=== PATIENT | female | born 1975 | race Caucasian/White ===

== ENCOUNTER → 2020-03-18 13:10 | Outpatient (BNVA) | payer OTHER, SELFPAY | PROVIDERS: PCP Internal Medicine; Visit Provider Obstetrics & Gynecology | DX: Z76.89 Persons encountering health services in other specified circumstances (principal) ==

== ENCOUNTER 2020-10-13 10:00 | Outpatient (REF) | payer OTHER, SELFPAY ==
--- NOTE | ~2020-10-13 | MM_ITS ---
EXAMINATION: MM SCREENING DIGITAL BREAST TOMOSYNTHESIS, BILATERAL CLINICAL INFORMATION: Screening. Asymptomatic. The lifetime risk of breast cancer based on the Tyrer-Cuzick Model is 20%. COMPARISON: Mammography: 07/28/2019, 06/11/2018, 09/23/2015 TECHNIQUE: Digital breast tomosynthesis is performed in both the craniocaudal and mediolateral oblique views along with computer-aided detection (CAD). Synthesized 2D images are generated from the tomosynthesis. FINDINGS: The breasts are extremely dense, which lowers the sensitivity of mammography (ACR BI-RADS breast composition Category d). There are no significant masses, abnormal calcifications, or other abnormalities. Parenchymal pattern is similar to prior studies. The axilla and skin contours are unremarkable. MM/MM tomosynthesis screening BI IMPRESSION: No mammographic evidence of malignancy. ASSESSMENT: BI-RADS 1: Negative RECOMMENDATION: Routine annual mammography screening. This patient's information was entered into a reminder system with a target due date for their next mammogram.
== END 2020-10-13 10:01 | disposition home or self-care (01) ==
LOC: HO.MAMMO 10:00
PROVIDERS: Visit Provider Internal Medicine
DX: Z12.31 Encounter for screening mammogram for malignant neoplasm of breast (principal)
CPT/HCPCS: 77063; 77067

== ENCOUNTER 2020-10-28 11:51 | Outpatient (REF) | payer OTHER, SELFPAY ==
[2020-10-28 13:17] LABS: MANUAL DIFF FLAG NO
[2020-10-28 13:21] LABS: Basophils Absolute Auto 0.1 X10*3/uL (0.0-0.2); Basophils Percent Auto 1.1 % (0-2); Eosinophils Absolute Auto 0.5 X10*3/uL (0.0-0.4); Eosinophils Percent Auto 6.3 % (0-4); Hematocrit 40.7 % (37-47); Hemoglobin 13.6 g/dl (12.0-16.0); Imm Gran Abs Auto 0.01 X10*3/uL (0.00-0.03); Imm Gran Pct Auto 0.1 % (0.0-0.4); Lymphocytes Absolute Auto 2.2 X10*3/uL (1.2-4.9); Lymphocytes Percent Auto 31.1 % (20-40); Mean Corpuscular HGB Conc 33.4 g/dl (31.0-35.0); Mean Corpuscular Hemoglobin 28.5 pg (27.0-33.0); Mean Corpuscular Volume 85.3 fL (80-98); Mean Platelet Volume 9.6 fL (9.4-12.3); Monocytes Absolute Auto 0.5 X10*3/uL (0.1-1.2); Monocytes Percent Auto 7.5 % (2-11); Neutrophils Absolute Auto 3.9 X10*3/uL (2.0-8.3); Neutrophils Percent Auto 53.9 % (45-73); Platelet Count 401 X10*3/uL (160-400); Red Blood Count 4.77 X10*6/uL (4.20-5.50); Red Cell Distribution Width 14.1 % (11.0-16.0); White Blood Count 7.2 X10*3/uL (4.8-10.8)
[2020-10-28 13:37] LABS: Alanine Aminotransferase 13 U/L (0-31); Albumin Level 4.4 g/dL (3.5-5.0); Alkaline Phosphatase 68 U/L (39-117); Anion Gap 15 (12-20); Aspartate Amino Transferase 14 U/L (5-31); Bilirubin Total 0.4 mg/dL (0.0-1.0); Blood Urea Nitrogen 14 mg/dL (9-16); Calcium 9.7 mg/dL (8.4-10.2); Carbon Dioxide 27 mmol/L (22-29); Chloride 101 mmol/L (96-108); Cholesterol 177 mg/dL; Estimated Glomerular Filt Rate > 60; Glucose Random 94 mg/dL (60-115); HDL Cholesterol 64 mg/dL; LDL Cholesterol Calculated 100 mg/dl; Potassium 4.9 mmol/L (3.3-5.1); Sodium 138 mmol/L (135-145); Total Protein 7.4 g/dL (6.5-8.0); Triglycerides 65 mg/dL
[2020-10-28 13:58] LABS: Free T4 (Free Thyroxine) 0.79 ng/dL (0.71-1.85); Thyroid Stimulating Hormone 2.81 uIU/mL (0.32-4.0)
[2020-10-29 04:42] LABS: Follicle Stimulating Hormone 5.2 mIU/mL; Lutenizing Hormone 3.3 mIU/mL; Prolactin 10.2 ng/mL
== END 2020-10-28 11:52 | disposition home or self-care (01) ==
LOC: HO.LAB 11:51
PROVIDERS: PCP Internal Medicine; Visit Provider Internal Medicine
DX: Z00.00 Encounter for general adult medical examination without abnormal findings (principal); N94.6 Dysmenorrhea, unspecified; E03.9 Hypothyroidism, unspecified
CPT/HCPCS: 36415; 80053; 80061; 83001; 83002; 84146; 84439; 84443; 85025

== ENCOUNTER 2021-10-14 10:03 | Outpatient (REF) | payer OTHER, SELFPAY ==
--- NOTE | ~2021-10-14 | MM_ITS ---
EXAMINATION: MM SCREENING DIGITAL BREAST TOMOSYNTHESIS, BILATERAL CLINICAL INFORMATION: Screening. Asymptomatic. The lifetime risk of breast cancer based on the Tyrer-Cuzick Model is 17%. COMPARISON: Mammography: 10/13/2020, 07/28/2019, 06/11/2018 TECHNIQUE: Digital breast tomosynthesis is performed in both the craniocaudal and mediolateral oblique views along with computer-aided detection (CAD). Synthesized 2D images are generated from the tomosynthesis. FINDINGS: The breasts are extremely dense, which lowers the sensitivity of mammography (ACR BI-RADS breast composition Category d). Breast tissue composition borders on heterogeneously dense. Parenchymal pattern is similar to prior studies. There is no developing density. There is no interval mass or architectural abnormality. No abnormal calcifications. The axilla and skin contours are unremarkable. No significant changes. MM/MM tomosynthesis screening BI IMPRESSION: No mammographic evidence of malignancy. ASSESSMENT: BI-RADS 1: Negative RECOMMENDATION: Routine annual mammography screening. This patient's information was entered into a reminder system with a target due date for their next mammogram.
== END 2021-10-14 10:04 | disposition home or self-care (01) ==
LOC: HO.MAMMO 10:03
PROVIDERS: PCP Internal Medicine; Visit Provider Internal Medicine
DX: Z12.31 Encounter for screening mammogram for malignant neoplasm of breast (principal)
CPT/HCPCS: 77063; 77067

== ENCOUNTER 2021-10-24 09:14 | Outpatient (REF) | payer OTHER, SELFPAY ==
[2021-10-24 16:20] LABS: CT PCR NOT DETECTED (Not Detect.); NG PCR NOT DETECTED (Not Detect.)
[2021-10-27 05:26] LABS: HPV mRNA E6/E7 rflx Not Detected (Not Detected)
== END 2021-10-24 09:15 | disposition home or self-care (01) ==
LOC: HO.LAB 09:14
PROVIDERS: Visit Provider Obstetrics & Gynecology
DX: Z01.411 Encounter for gynecological examination (general) (routine) with abnormal findings (principal); Z11.51 Encounter for screening for human papillomavirus (HPV); N93.9 Abnormal uterine and vaginal bleeding, unspecified
CPT/HCPCS: 87491; 87591; 87624; 88142

== ENCOUNTER 2021-11-02 10:03 | Outpatient (REF) | payer OTHER, SELFPAY | END 2021-11-02 10:04 | disposition home or self-care (01) | LOC: HO.LAB 10:03 | PROVIDERS: Visit Provider Obstetrics & Gynecology | DX: N93.9 Abnormal uterine and vaginal bleeding, unspecified (principal) | CPT/HCPCS: 58100; 81025; 88305 ==

== ENCOUNTER 2021-11-28 12:58 | Outpatient (REF) | payer OTHER, SELFPAY ==
--- NOTE | ~2021-11-28 | US_ITS ---
EXAMINATION: US PELVIS CLINICAL INFORMATION: Abnormal uterine bleeding COMPARISON: Previous pelvic ultrasound February 2020 TECHNIQUE: Ultrasound of the pelvis is performed using both transabdominal and transvaginal transducers along with Doppler. Transvaginal imaging is performed due to inadequate visualization transabdominally. FINDINGS: The uterus is anteverted and measures 8.8 x 4.5 x 4.5 cm. There is a heterogeneous area in the anterior lower uterine body suggestive of a fibroid. This measures 1.4 x 1.3 x 1.5 cm. No other focal uterine lesion is seen. Endometrial thickness is normal measuring 0.8 cm. The right ovary measures 2.4 x 1.9 x 1.6 cm. There is a 1.6 cm simple right ovarian cyst. The left ovary is not seen. There is no fluid in the pelvis. US/US pelvic and transvaginal IMPRESSION: Small uterine fibroid. Normal-appearing right ovary. Left ovary not seen.
== END 2021-11-28 12:59 | disposition home or self-care (01) ==
LOC: HO.US 12:58
PROVIDERS: Visit Provider Obstetrics & Gynecology
DX: N93.9 Abnormal uterine and vaginal bleeding, unspecified (principal)
CPT/HCPCS: 76830; 76856

== ENCOUNTER 2021-12-08 08:49 | Outpatient (REF) | payer OTHER, SELFPAY ==
[2021-12-08 09:31] LABS: Hematocrit 39.7 % (37.0-47.0); Hemoglobin 13.2 g/dl (12.0-16.0); Mean Corpuscular HGB Conc 33.2 g/dl (31.0-35.0); Mean Corpuscular Hemoglobin 27.8 pg (27.0-33.0); Mean Corpuscular Volume 83.6 fL (80.0-98.0); Mean Platelet Volume 8.8 fL (9.4-12.3); Platelet Count 351 X10*3/uL (160-400); Red Blood Count 4.75 X10*6/uL (4.20-5.50); Red Cell Distribution Width 13.5 % (11.0-16.0); White Blood Count 7.9 X10*3/uL (4.8-10.8)
[2021-12-08 10:21] LABS: HCG Quantitative < 2 mIU/mL; TSH reflex Free T4 5.99 uIU/mL (0.32-4.0)
[2021-12-08 10:56] LABS: Free T4 (Free Thyroxine) 0.84 ng/dL (0.71-1.85)
== END 2021-12-08 08:50 | disposition home or self-care (01) ==
LOC: HO.LAB 08:49
PROVIDERS: PCP Internal Medicine; Visit Provider Obstetrics & Gynecology
DX: N93.9 Abnormal uterine and vaginal bleeding, unspecified (principal)
CPT/HCPCS: 36415; 84439; 84443; 84702; 85027

== ENCOUNTER 2022-10-20 09:53 | Outpatient (REF) | payer OTHER, SELFPAY ==
--- NOTE | ~2022-10-20 | MM_ITS ---
EXAMINATION: MM SCREENING DIGITAL BREAST TOMOSYNTHESIS, BILATERAL CLINICAL INFORMATION: Screening. Asymptomatic. The lifetime risk of breast cancer based on the Tyrer-Cuzick Model is 17%. COMPARISON: Mammography: 10/14/2021, 10/13/2020, 07/28/2019 TECHNIQUE: Digital breast tomosynthesis is performed in both the craniocaudal and mediolateral oblique views along with computer-aided detection (CAD). Synthesized 2D images are generated from the tomosynthesis. FINDINGS: The breasts are extremely dense, which lowers the sensitivity of mammography (ACR BI-RADS breast composition Category d). Parenchymal pattern is similar to prior studies and there is no developing density or architectural abnormality. There are no significant masses, abnormal calcifications, or other abnormalities. The axilla and skin contours are unremarkable. No significant changes. MM/MM tomosynthesis screening BI IMPRESSION: No mammographic evidence of malignancy. ASSESSMENT: BI-RADS 1: Negative RECOMMENDATION: Routine annual mammography screening. This patient's information was entered into a reminder system with a target due date for their next mammogram.
== END 2022-10-20 09:54 | disposition home or self-care (01) ==
LOC: HO.MAMMO 09:53
PROVIDERS: PCP Internal Medicine; Visit Provider Internal Medicine
DX: Z12.31 Encounter for screening mammogram for malignant neoplasm of breast (principal)
CPT/HCPCS: 77063; 77067

== ENCOUNTER 2022-11-27 09:49 | Outpatient (REF) | payer OTHER, SELFPAY | END 2022-11-27 09:50 | disposition home or self-care (01) | LOC: HO.LNP 09:49 | PROVIDERS: PCP Internal Medicine; Visit Provider Obstetrics & Gynecology | DX: Z13.89 Encounter for screening for other disorder (principal) ==

== ENCOUNTER 2022-11-27 10:28 | Outpatient (REF) | payer OTHER, SELFPAY ==
[2022-11-27 11:48] LABS: Hematocrit 41.2 % (37.0-47.0); Hemoglobin 13.8 g/dl (12.0-16.0); Mean Corpuscular HGB Conc 33.5 g/dl (31.0-35.0); Mean Corpuscular Hemoglobin 28.9 pg (27.0-33.0); Mean Corpuscular Volume 86.4 fL (80.0-98.0); Mean Platelet Volume 9.3 fL (9.4-12.3); Platelet Count 388 X10*3/uL (160-400); Red Blood Count 4.77 X10*6/uL (4.20-5.50); Red Cell Distribution Width 13.2 % (11.0-16.0); White Blood Count 6.4 X10*3/uL (4.8-10.8)
[2022-11-27 13:29] LABS: TSH reflex Free T4 4.85 uIU/mL (0.32-4.0)
[2022-11-27 13:30] LABS: HCG Quantitative < 2 mIU/mL
[2022-11-27 13:37] LABS: CT PCR NOT DETECTED (Not Detect.); NG PCR NOT DETECTED (Not Detect.)
[2022-11-27 14:16] LABS: Free T4 (Free Thyroxine) 0.94 ng/dL (0.71-1.85)
== END 2022-11-27 10:29 | disposition home or self-care (01) ==
LOC: HO.LAB 10:28
PROVIDERS: PCP Internal Medicine; Visit Provider Obstetrics & Gynecology
DX: N93.9 Abnormal uterine and vaginal bleeding, unspecified (principal); Z20.2 Contact with and (suspected) exposure to infections with a predominantly sexual mode of transmission
CPT/HCPCS: 0353U; 84146; 84439; 84443; 84702; 85027

== ENCOUNTER 2022-12-15 11:03 | Outpatient (REF) | payer OTHER, SELFPAY ==
--- NOTE | ~2022-12-15 | US_ITS ---
EXAMINATION: US PELVIS CLINICAL INFORMATION: Abnormal uterine and vaginal bleeding, unspecified LMP: Unknown COMPARISON: Pelvic ultrasound 11/28/2021, 02/03/2020 TECHNIQUE: Ultrasound of the pelvis is performed using both transabdominal and transvaginal transducers along with Doppler. Transvaginal imaging is performed due to inadequate visualization transabdominally. FINDINGS: Uterus: The uterus is anteverted and measures 8.4 x 3.9 x 4.0 cm. section scar is noted. 0.9 x 0.7 x 1.0 cm anterior subserosal fibroid previously measured 1.4 x 1.3 x 1.5 cm. 0.9 x 0.9 x 0.8 cm posterior fibroid is new. Calcifications are seen in the lower uterine segment The endometrial thickness is 0.9-1.0 mm. Adnexa: Right ovary measures 2.4 x 1.9 x 2.0 cm. Volume 4.5 mL. This is better seen transabdominally. The left ovary is questionably seen. There are limited views of the left ovary due to bowel gas. Left ovary measures 2.3 x 1.0 x 1.2 cm. 1.5 US/US pelvic and transvaginal IMPRESSION: 1. Interval decrease in size of 1.0 cm anterior subserosal fibroid. 2. New 0.9 cm posterior fibroid. 3. Normal right ovary. 4. Limited views of the left ovary due to bowel gas.
== END 2022-12-15 11:04 | disposition home or self-care (01) ==
LOC: HO.US 11:03
PROVIDERS: PCP Internal Medicine; Visit Provider Obstetrics & Gynecology
DX: N93.9 Abnormal uterine and vaginal bleeding, unspecified (principal)
CPT/HCPCS: 76830; 76856

== ENCOUNTER 2023-01-03 14:23 | Outpatient (AMB) | payer OTHER, SELFPAY ==
--- NOTE | 2023-01-03 14:24 | MHC.OFFVIS ---
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 Sexual orientation: Straight/Heterosexual Gender identity: Female Female Reproductive History Menstrual Age of Menarche: 10 Review of Systems Const All systems reviewed & are unremarkable except as noted in HPI and below Reports as per HPI and Reports no additional complaints GI Reports no additional complaints Reports no additional complaints Physical Exam Vital Signs: Last Vital Signs BP 120/74 01/03/23 14:31 BMI result Body Mass Index 26.9 Office Procedures Endometrial Biopsy Details: The patient was counseled regarding the indication and benefits of endometrial sampling to rule out endometrial pathology including not limited to endometrial hyperplasia or endometrial cancer and others; The alternatives (Either do nothing vs. hysteroscopy D&C) & the risks were discussed with the patient including but not limited: pain, uterine perforation, bleeding, infection, possible injury to bladder, bowel, ureter, possible need for blood transfusion with all its possible risks. The patient verbalized understanding all questions answered and signed consent. Urine test done in the office was negative The patient was placed into the dorsal lithotomy position; a speculum was inserted in the vagina. Using aseptic technique for the procedure, the cervix was cleansed with Betadine. The anterior lip of the cervix was grasped with a single tooth tenaculum. The uterus was sounded to 7 cm with a 4 mm Pipelle was used. Tissues samples were obtained and placed in formalin, in a patient labeled container and sent to the pathology department. At the end of the procedure, there was minimal bleeding noted The patient tolerated the procedure well and was discharged in good condition with the following instructions: Nothing in the vagina until the bleeding stops. No sex until the bleeding stops, to call if any of the following occurs: fever (>100.4), flu-like symptoms, abdominal pain, heavy bleeding, four smelling vaginal discharge. The patient was instructed to schedule a Follow up appointment in 2 weeks to discuss pathology results of the biopsy and treatment options. This note was generated with a voice recognition program. Some errors may have been overlooked during the review of this note. Sometimes these errors may affect the content or meaning of a given sentence. [id number] Biopsy Results AMB Test Urine AMB Test Urine Negative Last Edit by Cherri Hernandez CMA on 01/03/23 14:39 Assessment & Plan Assessment & Plan (1) Abnormal uterine bleeding (AUB): Code(s): N93.9 - Abnormal uterine and vaginal bleeding, unspecified (2) Myoma: Code(s): D21.9 - Benign neoplasm of connective and other soft tissue, unspecified (3) Elevated TSH: Code(s): R79.89 - Other specified abnormal findings of blood chemistry Orders: Orders AMB HCG Urine Test Today Z32.02 - Encounter for test, result negative Surgical Today N93.9 - Abnormal uterine and vaginal bleeding, unspecified AMB Endometrial Biopsy Today N93.9 - Abnormal uterine and vaginal bleeding, unspecified Coding Level of Care Code Procedure Only Diagnoses Abnormal uterine bleeding (AUB) N93.9 Myoma D21.9 Elevated TSH R79.89 CPT Codes Endometrial Biopsy - CPT: 30386-Jmpxlcueewe Biopsy ([id number])
[2023-01-03 14:31] VITALS: BP 120/74; BMI 26.9
== END 2023-01-03 15:11 | disposition home or self-care (01) ==
LOC: HO.HWS 14:23
PROVIDERS: PCP Internal Medicine; Visit Provider Obstetrics & Gynecology
DX: N93.9 Abnormal uterine and vaginal bleeding, unspecified (principal); D21.9 Benign neoplasm of connective and other soft tissue, unspecified; R79.89 Other specified abnormal findings of blood chemistry; Z32.02 Encounter for pregnancy test, result negative
CPT/HCPCS: 58100

== ENCOUNTER 2023-01-03 14:23 | Outpatient (REF) | payer OTHER, SELFPAY | END 2023-01-03 14:24 | disposition home or self-care (01) | LOC: HO.LNP 14:23 | PROVIDERS: PCP Internal Medicine; Visit Provider Obstetrics & Gynecology | DX: N93.9 Abnormal uterine and vaginal bleeding, unspecified (principal); D21.9 Benign neoplasm of connective and other soft tissue, unspecified; R79.89 Other specified abnormal findings of blood chemistry | CPT/HCPCS: 58100; 81025; 88305 ==

== ENCOUNTER 2023-01-23 10:17 | Outpatient (AMB) | payer OTHER, SELFPAY ==
--- NOTE | 2023-01-23 10:17 | MHC.OFFVIS ---
Intake Intake Visit Reasons: TV EMB results Elevator Technician Required: No Information Interpreted: non-clinical & clinical Accompanied by: Self / Same As Patient Allergies No Known Allergies [No Known Allergies*] Allergy (Verified 01/23/23 10:18) HPI HPI Comments History of Present Illness Details The patient schedule tele health visit for follow-up to discuss the results of her abnormal uterine bleeding workup and options of treatment. The following workup was done.: H&H= 13.8/41.2 hCG, GC and chlamydia were negative. TSH is elevated at 4.85 with normal free T4 Endometrial biopsy pathology showed proliferative endometrium with no evidence of hyperplasia and/or malignancy. Co testing was done in 10/23 was negative. Mammogram was done in 10/24 was BI-RADS 1. Pelvic ultrasound showed the following: IMPRESSION: 1. Interval decrease in size of 1.0 cm anterior subserosal fibroid. 2. New 0.9 cm posterior fibroid. 3. Normal right ovary. 4. Limited views of the left ovary due to bowel gas. [facility] Medical History Asthma Cervical high risk HPV (human papillomavirus) test positive Surgical History History of bilateral tubal ligation History of Family History Father HTN (hypertension) Mother No problems noted. 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 Sexual orientation: Straight/Heterosexual Gender identity: Female Female Reproductive History Menstrual Age of Menarche: 10 Review of Systems Const All systems reviewed & are unremarkable except as noted in HPI and below Reports as per HPI and Reports no additional complaints GI Reports no additional complaints Reports no additional complaints Assessment & Plan Assessment & Plan (1) Abnormal uterine bleeding (AUB): Code(s): N93.9 - Abnormal uterine and vaginal bleeding, unspecified Plan: Discussed with the patient the results of the work up done and options of treatment including but not limited to BCP's, cyclic Progesterone, Mirena IUD, endometrial ablation and hysterectomy. All pros, cons, risks and benefits of each option were discussed with the patient and the patient decided to go ahead with cyclic Provera, so a more detailed discussion re: Progesterone treatment including mechanism of action, benefits (regular menses, endometrial protection form unopposed estrogen and reduction in the risk of endometrial hyperplasia and/or cancer ...), risks (Thrombosis, mood changes, weight gain, breast soreness, ? increased breast ca, others). Instructions were given to schedule a 3 month follow-up appointment, the patient verbalized understanding and agreed with the plan. (2) Myoma: Code(s): D21.9 - Benign neoplasm of connective and other soft tissue, unspecified Plan: Discussed with the patient the findings on pelvic ultrasound & the risk of myosarcoma; discussed with the patient the options of treatment including expectant management versus hysterectomy; the pros and cons, risks benefits of each approach were discussed with the patient including the fact that in cases of myosarcoma, surgical treatment can lead to early diagnosis and positively affects the prognosis; after further discussion, the patient decided to proceed with expectant management. Will repeat pelvic ultrasound periodically. Instructions given to patient to call in case any of the following occurs: pressure symptoms, abnormal uterine bleeding, pelvic pain; and to schedule a future office follow-up appointment for reassessment and to order a repeat ultrasound . All questions answered, the patient verbalized understanding and agreed with the plan . (3) Elevated TSH: Code(s): R79.89 - Other specified abnormal findings of blood chemistry Plan: Discussed with the patient the results of her elevated TSH and free T4, recommend the patient to contact her primary care physician for further management I spent a total of 20 minutes reviewing the chart, talking to the patient via video and documenting in the medical record. Medications: New medroxyprogesterone (Provera) start Provera 1 tablet daily from day 15-24 cyclically every months, day 1 being 1st day of menses 10 mg PO DAILY 30 tabs 0RF 10 days Telehealth Telehealth Location of provider rendering services: practice address Location of patient: address on file Patient Identification confirmed using: Name, : Yes Telehealth method: video Patient verbally consented to treatment: Yes Patient verbally consented to billing insurance company: Yes Patient informed of any privacy concerns related to visit: Yes Coding Level of Care Code Tele Est Pt Level 3 (14734) Diagnoses Abnormal uterine bleeding (AUB) N93.9 Myoma D21.9 Elevated TSH R79.89
== END 2023-01-23 14:55 | disposition home or self-care (01) ==
LOC: HO.HWS 10:17
PROVIDERS: PCP Internal Medicine; Visit Provider Obstetrics & Gynecology
DX: N93.9 Abnormal uterine and vaginal bleeding, unspecified (principal); D21.9 Benign neoplasm of connective and other soft tissue, unspecified; R79.89 Other specified abnormal findings of blood chemistry
CPT/HCPCS: 99213

== ENCOUNTER → 2023-01-23 10:17 | Outpatient (BNVA) | payer OTHER, SELFPAY | PROVIDERS: PCP Internal Medicine; Visit Provider Obstetrics & Gynecology ==

== ENCOUNTER 2023-02-15 12:13 | Outpatient (AMB) | payer OTHER, SELFPAY ==
--- NOTE | 2023-02-15 12:32 | A.OFFVIS_ITS ---
Intake Vital Signs 3 02/15/23 12:33 Height 5 ft 7 in Weight 169 lb BMI 26.5 BP 122/72 Blood Pressure Location Lt brachial Position Sitting Pulse 92 Intake Visit Reasons: Colonoscopy Screening Intake Note: Patient new consult for 1st pre colonoscopy screening. Patient denies any GI issues. Cost And Risk Analysis Manager Required: No Accompanied by: Self / Same As Patient Allergies No Known Allergies [No Known Allergies*] Allergy (Verified 02/15/23 12:31) HPI Colonoscopy Screening 2 HPI0 Details 47-year-old female here for preprocedura l meeting to discuss a screening colonoscopy. She is referred by Sharif Monique MD. PMX (PCP took note is illegible so there are parts of the medical history on discernible) Asthma Hypothyroid Menometrorrhagia * SURGICAL HISTORY Tubal ligation * ALLERGIES: NKDA * [facility]: 11/27/22-1032 [facility] DR: Caitlin simmons,James MOTA ORDERED: CBC No Diff Test Result Flag Refere nce Si te WBC 6.4 4.8-10. 8 X10*3/uL RBC 4.77 4.20-5.50 X10*6/uL H GB 13 .8 12.0-16.0 g /dl HCT 41.2 37.0-47.0 % MCV 86.4 80.0-98.0 fL MCH 28.9 27.0-33.0 pg MCHC 33.5 3 1.0-35.0 g/dl RDW 13.2 11. 0-16.0 % PLT 388 160-4 00 X10*3/uL MPV 9.3 L 9.4-12. 3 fL NRBC Pct Auto 0.0 0.0-0.2 / 100WBC N RBC Abs Auto 0.0 00 0.0-0.012 X 10*3/uL NO CURRENT CHEM PROFILE !!! TODAY'S VISIT This is her first colonoscopy. She denies any bowel or upper GI problems No anes or sed problems. Her asthma is well controlled and she denies cardiac problems. No ID problems. HEr father had colon polyps removed, no known CRC. PFSH Medical History Asthma Cervical high risk HPV (human papillomavirus) test positive Surgical History History of bilateral tubal ligation History of Family History Father HTN (hypertension) Mother No problems noted. 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 Sexual orientation: Straight/Heterosexual Gender identity: Female Female Reproductive History Menstrual Age of Menarche: 10 Review of Systems Const Denies fatigue, Denies fever(s), Denies night sweats, Denies poor appetite and Denies weight loss Eyes Details: glasses Reports requires corrective lenses ENT Reports Normal hearing present, Denies dental pain, Denies dysphagia, Denies hearing loss, Denies mouth pain, Denies odynophagia, Denies throat swelling, Denies tongue swelling and Reports other (Dentition adequate) Card Reports no additional complaints Resp Reports no additional complaints GI Denies abdominal pain, Denies melena, Denies bloating, Denies hematochezia, Denies constipation, Denies GI cramping, Denies dysphagia, Denies excessive flatus, Denies early satiety, Denies heartburn, Denies diarrhea, Denies nausea, Denies odynophagia, Denies vomiting and Denies hematemesis Skin/Breast Denies pruritus, Denies lesions, Denies rash and Denies jaundice Neuro Reports Normal hearing present and Denies Abnormal speech present Endo Denies fatigue Aller/Immun Denies throat swelling and Denies tongue swelling Physical Exam Vital Signs: Last Vital Signs Pulse 92 02/15/23 12:33 BP 122/72 02/15/23 12:33 BMI result Body Mass Index 26.5 Const General: cooperative, no acute distress, well developed and well groomed Nutritional Appearance: average body habitus and well nourished Orientation/consciousness: oriented to person, oriented to place and oriented to time Limitations: No language barrier HEENT Head: Yes normocephalic and Yes atraumatic Eyes General: appearance normal, both eyes and all related structures Pupils: Equal, round and reactive pupils present Neck Neck: Yes normal visual inspection and Yes no lymphadenopathy Thyroid: Thyroid normal Resp Effort & Inspection: normal respiratory effort and able to speak in complete sentences Auscultation: clear to auscultation bilaterally Cardio Rate: regular rate Rhythm: regular rhythm Heart sounds: Normal, physiologic split S2 sound present Peripheral pulses: radial pulses present and posterior tibial pulses present GI Inspection: No distended and No Abdominal panniculus present Palpation (GI): Soft to palpation, nontender, no guarding, not rigid and No hepatosplenomegaly present Percussion: Yes normal to percussion Auscultation: normal bowel sounds Rectal Exam - Female: deferred Abdomen image: 2 1. surgical scars Skin General skin exam: no rashes or lesions noted, turgor normal, skin not dry, no jaundice, No spider nevi and no striae Rashes: no rashes Nails: normal Neuro General: oriented to person, oriented to place and oriented to time Cranial nerves: Yes Equal, round and reactive pupils present and Yes Normal hearing present Speech: No Abnormal speech present Extrem General: Yes normal to inspection, No clubbing, No cyanosis and No edema Psych Appearance: grossly normal and well kempt Mental Status: mental status grossly normal Speech and movement: Normal speech and movement present Affect: normal affect Attitude: cooperative Thought process: Normal thought process present and not confabulating Thought content: Normal thought content present Insight: Good insight present (Psych) Judgement: Good judgement present (Psych) Assessment & Plan Assessment & Plan (1) Pre-op examination: Code(s): Z01.818 - Encounter for other preprocedural examination Plan: This is her first colonoscopy. She denies any bowel or upper GI problems No anes or sed problems. Her asthma is well controlled and she denies cardiac problems. No ID problems. HEr father had colon polyps removed, no known CRC. (2) Family history of polyps in the colon: Code(s): Z83.71 - Family history of colonic polyps Orders: Orders 2 Comprehensive Met. Panel 02/15/23 Z01.818 - Encounter for other preprocedural examination Medications: New 2 sod sulf-pot chloride-mag sulf 1.479-0.188- 0.225 gram (Sutab) PO PER PKG DIR 24 tabs 0RF Coding Level of Care Code New Pt Level 3 (20120) Diagnoses Pre-op examination Z01.818 Family history of polyps in the colon Z83.71
[2023-02-15 12:33] VITALS: BP 122/72; PULSE 92; BMI 26.5
== END 2023-02-15 13:22 | disposition home or self-care (01) ==
PROVIDERS: PCP Internal Medicine; Visit Provider Nurse Practitioner
DX: Z01.818 Encounter for other preprocedural examination (principal); Z83.71 Family history of colonic polyps
CPT/HCPCS: 99203

== ENCOUNTER → 2023-02-15 12:13 | Outpatient (BNVA) | payer OTHER, SELFPAY | PROVIDERS: PCP Internal Medicine; Visit Provider Nurse Practitioner ==

== ENCOUNTER 2023-06-18 | Outpatient (REF) | payer OTHER, SELFPAY ==
[2023-06-18 10:23] LABS: MANUAL DIFF FLAG NO
[2023-06-18 10:31] LABS: Basophils Absolute Auto 0.1 X10*3/uL (0.0-0.2); Basophils Percent Auto 1.4 % (0-2); Eosinophils Absolute Auto 0.8 X10*3/uL (0.0-0.4); Eosinophils Percent Auto 8.4 % (0-4); Hematocrit 42.3 % (37.0-47.0); Hemoglobin 14.1 g/dl (12.0-16.0); Imm Gran Abs Auto 0.02 X10*3/uL (0.00-0.03); Imm Gran Pct Auto 0.2 % (0.0-0.4); Lymphocytes Absolute Auto 2.6 X10*3/uL (1.2-4.9); Lymphocytes Percent Auto 28.4 % (20-40); Mean Corpuscular HGB Conc 33.3 g/dl (31.0-35.0); Mean Corpuscular Hemoglobin 28.1 pg (27.0-33.0); Mean Corpuscular Volume 84.4 fL (80.0-98.0); Mean Platelet Volume 8.9 fL (9.4-12.3); Monocytes Absolute Auto 0.9 X10*3/uL (0.1-1.2); Neutrophils Absolute Auto 4.8 x10*3/uL (2.0-8.3); Neutrophils Percent Auto 51.6 % (45-73); Platelet Count 419 X10*3/uL (160-400); Red Blood Count 5.01 X10*6/uL (4.20-5.50); Red Cell Distribution Width 13.5 % (11.0-16.0); White Blood Count 9.2 X10*3/uL (4.8-10.8)
[2023-06-18 10:58] LABS: Alanine Aminotransferase 14 U/L (0-31); Albumin Level 4.4 g/dL (3.5-5.0); Alkaline Phosphatase 70 U/L (39-117); Anion Gap 12 (12-20); Aspartate Amino Transferase 15 U/L (5-31); Bilirubin Total 0.3 mg/dL (0.0-1.0); Blood Urea Nitrogen 13 mg/dL (9-16); Calcium 9.8 mg/dL (8.4-10.2); Carbon Dioxide 25 mmol/L (22-29); Chloride 104 mmol/L (96-108); Cholesterol 192 mg/dL (<200); Estimated Glomerular Filt Rate > 60; Glucose Fasting 137 mg/dL (60-99); HDL Cholesterol 66 mg/dL (>40); LDL Cholesterol Calculated 116 mg/dL (<100); Potassium 4.5 mmol/L (3.3-5.1); Sodium 136 mmol/L (135-145); Total Protein 7.9 g/dL (6.5-8.0); Triglycerides 54 mg/dL (<150)
[2023-06-18 11:14] LABS: Free T4 (Free Thyroxine) 1.02 ng/dL (0.71-1.85); Thyroid Stimulating Hormone 5.68 uIU/mL (0.32-4.0)
[2023-06-19 07:18] LABS: Follicle Stimulating Hormone 3.2 mIU/mL; Lutenizing Hormone 4.6 mIU/mL
== END 2023-06-18 08:24 ==
LOC: HO.LAB
PROVIDERS: PCP Internal Medicine; Visit Provider Internal Medicine
DX: E03.9 Hypothyroidism, unspecified (principal)
CPT/HCPCS: 36415; 80053; 80061; 83001; 83002; 84439; 84443; 85025

== ENCOUNTER 2023-07-03 09:53 | Day surgery (SDC) | payer OTHER, SELFPAY ==
[2023-07-03] MEDS: Lactated Ringers 1,000 ML 80 ML IVCONT (11:14)
[2023-07-03 11:15] VITALS: BP 131/88; PULSE 88; RESP 18; TEMP 36.7; O2SAT 97
[2023-07-03 11:16] VITALS: BMI 26.0
--- NOTE | 2023-07-03 12:12 | P.HPSUR_ITS ---
Pre-Procedural Eval Section A - 24 Hr Update-Section A only Date of Service: 07/03/23 Section B - Complete if H&P > 30 days Chief Complaint: screening Relevant Family History (Specify if Yes): No Relevant Social History: None Present Medications: see Short Stay Collaborative assessment Medical History: Significant History (Asthma Hypothyroid Menometrorrhagia ) History of Previous Operations: Relevant previous surgery/procedure and date(s) (Tubal ligation ) Allergies: Allergies Allergy/AdvReac Type Severity Reaction Status Date / Time No Known Allergies Allergy Verified 02/15/23 12:31 [No Known Allergies*] Review of Systems Sugical H&P ROS: Negative: Constitution, Cardiovascular, Respiratory, Neurological, Psychiatric, Hem-Onc, Allergic/Immunologic, Gastrointestinal, Genitourinary, Musculoskeletal, Integumentary, Endocrine and Eye s/Ears/Nose/Throat Exam Surgical H&P Exam: Normal: HEENT, Normal: Heart, Normal: Lungs, Normal: Extremities, Normal: Abdomen, Normal: Skin and Normal: Neurological Plan Diagnosis/Plan: Unchanged I have reviewed the history and physical and performed a pertinent physical examination on my patient. No changes have occurred unless specified. Time Spent With Patient Time: Total time managing care of this patient today ____ minutes.
--- NOTE | 2023-07-03 12:14 | P.OP_ITS ---
Operative Note Operative Note Date of Service: 07/03/23 Narrative: Operative Information Procedure Description: Colonoscopy Indication: screening Anesthesia: MAC COLONOSCOPY Instrument: Olympus variable stiffness pediatric scope 190L Colonoscopy Monitoring: Vital signs and clinical assessment, continuous EKG monitoring, Pulse oximetry, Carbon Dioxide monitoring and blood pressure monitoring were done throughout the procedure. Colon withdrawal time was 6 minutes. Procedure: The patient was placed in the left lateral decubitis position and pre-procedure medications were administered. After a digital rectal examination of the ano-rectum, the video colonoscope was inserted into the rectum and advanced through the colon to the cecum/TI. The colonoscope was slowly withdrawn in a retrograde panoramic fashion and the colon mucosa was carefully examined including a retroflexed view of the rectum. Findings and interventions are described below. Procedure Difficulty: medium Findings: Terminal Ileum-normal Cecum:normal Right sided retroflexion- nomal Ascending Colon: normal Transverse Colon -normal Descending Colon:normal Sigmoid Colon: normal Rectum: Retroflexion with small internal hemorrhoids, grade I Anorectum - normal Colon preparation: [place] Bowel Preparation Scale Right colon; 2 Transverse colon: 3 Left colon; 3 (0 = Unprepared colon segment with mucosa not seen due to solid stool that cannot be cleared. 1 = Portion of mucosa of the colon segment seen, but other areas of the colon segment not well seen due to staining, residual stool and/or opaque liquid. 2 = Minor amount of residual staining, small fragments of stool and/or opaque liquid, but mucosa of colon segment seen well. 3 = Entire mucosa of colon segment seen well with no residual staining, small fragments of stool or opaque liquid) Impression and Post Procedure Diagnosis: internal hemorrhoids Plan: High fiber diet leaflet Avoid straining at stool, epsom salts and sitz bath, anusol supps or cream Repeat Colonoscopy in 10 years or earlier if clinically indicated Above findings were reviewed with the patient and relevant handouts were provided if indicated.
--- NOTE | 2023-07-03 12:52 | P.CONAN_ITS ---
HPI - Anesthesia Eval Consult details Narrative: for colonoscopy [facility] Active Problems Active Problems: All Active Problems (Updated 02/28/23 @ 19:37 by KIERRA Rooney) Family history of polyps in the colon (Acute) Pre-op examination (Acute) Colon cancer screening (Acute) Hypothyroid (Acute) Abnormal uterine bleeding (AUB) (Acute) Well woman exam (Acute) Elevated TSH (Acute) Myoma (Acute) Menometrorrhagia (Acute) Past Medical History Medical History Cervical high risk HPV (human papillomavirus) test positive Asthma Family History Family History Father HTN (hypertension) Mother No problems noted. Maternal Grandmother Breast cancer Pancreas cancer Family history of problems with anesthesia: No Surgical History Surgical History History of bilateral tubal ligation History of History of Problems with Anesthesia: No Social History Social History Household Members: Spouse and Children Housing: House Alcohol intake: current Alcohol intake frequency: holidays/special occasions only Patient Tobacco Use Status: Former Tobacco user Substance Use Frequency: Occasionally Are you DNR?: No Advance Directives: No Advance Directives Information Provided: Yes Nutrition Risks: No Nutritional Risk FDLMP: just finishing Current occupational status: employed 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 Sexual orientation: Straight/Heterosexual Gender identity: Female Meds Allergies Allergy/AdvReac Type Severity Reaction Status Date / Time No Known Allergies Allergy Verified 02/15/23 12:31 [No Known Allergies*] Active Medications: Current Medications Lactated Ringer's (Lr) 1,000 mls @ 80 mls/hr IVCONT .[id number] NORMAN Last Admin: 07/03/23 11:14 Dose: 80 mls/hr Home Medications Medication Instructions Recorded Confirmed Last Taken Type fluticasone propionate 50 1 spray intranasal BID PRN 03/18/20 Unknown History mcg/actuation nasal spray,suspension montelukast 10 mg tablet 10 mg PO DAILY 03/18/20 Unknown History albuterol sulfate 90 mcg/actuation 2 puff inhalation Q4H PRN 11/27/22 Unknown History aerosol inhaler Exam Height,Weight and Vital Signs: Height 5 ft 7 in Weight 75.296 kg Last Vital Signs Temp 98.0 F 07/03/23 11:15 Pulse 88 07/03/23 11:15 Resp 18 07/03/23 11:15 BP 131/88 07/03/23 11:15 Pulse Ox 97 07/03/23 11:15 O2 Del Method Room Air 07/03/23 11:15 Airway Mallampati Class: II TM Dist: >3cm Neck ROM: Full Heart: rrr Lungs: cta Assessment and Plan Assessment Anesthesia Assessment: Anesthesia Plan Discussed and Chart Reviewed Final Anesthetic Review Family History of Problems with Anesthesia: No History of Problems with Anesthesia: No NPO: Yes ASA Class: II Final Preanesthetic Review: No Changes in Pt Med Stat, Meds/Allgs Chart Reviewed, Consent Obtained/Reviewed and Anes Risks/Benef Reviewed Patient Risk: Low Procedure Risk: Low Anesthetic Plan Anesthetic Plan: MAC: Disposition: Standard PACU
[2023-07-03 12:56] VITALS: BP 103/55; PULSE 72; RESP 12; TEMP 36.3; O2SAT 100
[2023-07-03 13:11] VITALS: BP 122/72; PULSE 73; RESP 16; TEMP 36.8; O2SAT 97
== END 2023-07-03 13:56 | disposition home or self-care (01) ==
PROVIDERS: PCP Internal Medicine; Visit Provider Internal Medicine Gastroenterology
PROC: 0DJD8ZZ Inspection of Lower Intestinal Tract, Via Natural or Artificial Opening Endoscopic (ICD-10-PCS; CPT 45378; principal; 2023-07-03 12:30)
DX: Z12.11 Encounter for screening for malignant neoplasm of colon (principal); Z83.719 Family history of colon polyps, unspecified; K64.0 First degree hemorrhoids; J45.909 Unspecified asthma, uncomplicated; E03.9 Hypothyroidism, unspecified; Z79.899 Other long term (current) drug therapy; Z79.51 Long term (current) use of inhaled steroids; Z98.51 Tubal ligation status; Z87.891 Personal history of nicotine dependence
CPT/HCPCS: 45378; J2704; J3010

== ENCOUNTER → 2023-07-03 09:53 | Outpatient (BNV) | payer OTHER, SELFPAY | PROVIDERS: PCP Internal Medicine; Visit Provider Internal Medicine Gastroenterology | DX: Z12.11 Encounter for screening for malignant neoplasm of colon (principal); K64.0 First degree hemorrhoids | CPT/HCPCS: 45378 ==

== ENCOUNTER 2023-10-24 09:24 | Outpatient (REF) | payer OTHER, SELFPAY ==
--- NOTE | ~2023-10-24 | MM_ITS ---
EXAMINATION: MM SCREENING DIGITAL BREAST TOMOSYNTHESIS, BILATERAL CLINICAL INFORMATION: Screening. Asymptomatic. COMPARISON: Mammography: This study is compared with prior exams dating back to 2019. TECHNIQUE: Digital breast tomosynthesis is performed in both the craniocaudal and mediolateral oblique views along with computer-aided detection (CAD). Synthesized 2D images are generated from the tomosynthesis. FINDINGS: The breasts are extremely dense, which lowers the sensitivity of mammography (ACR BI-RADS breast composition Category d). There are no significant masses, abnormal calcifications, or other abnormalities. MM/MM tomosynthesis screening BI IMPRESSION: No mammographic evidence of malignancy. ASSESSMENT: BI-RADS BI-RADS 1 - Negative RECOMMENDATION: Routine annual mammography screening. 1 year F/U This examination should not preclude the clinical evaluation of a suspicious palpable abnormality. This patient's information was entered into a reminder system with a target due date for their next mammogram.
== END 2023-10-24 09:25 | disposition home or self-care (01) ==
LOC: HO.MAMMO 09:24
PROVIDERS: PCP Internal Medicine; Visit Provider Internal Medicine
DX: Z12.31 Encounter for screening mammogram for malignant neoplasm of breast (principal)
CPT/HCPCS: 77063; 77067

== ENCOUNTER → 2023-10-24 09:30 | Outpatient (BNV) | payer OTHER, SELFPAY | PROVIDERS: PCP Internal Medicine; Visit Provider Radiology Diagnostic Radiology | DX: Z12.31 Encounter for screening mammogram for malignant neoplasm of breast (principal) | CPT/HCPCS: 77063; 77067 ==

== ENCOUNTER 2024-02-26 12:48 | Outpatient (AMB) | payer OTHER, SELFPAY ==
[2024-02-26 13:02] VITALS: BP 120/76; BMI 25.5
--- NOTE | 2024-02-26 13:02 | A.OFFVIS_ITS ---
Vital Signs 02/26/24 13:02 Height 5 ft 7 in Weight 163 lb 2.273 oz BMI 25.5 BP 120/76 Intake Visit Reasons: Breast pain Plug Stitcher Required: No Information Interpreted: non-clinical & clinical Benefits Director: Benefits Director Present (Cherri BENNETT) Accompanied by: Self / Same As Patient Allergies No Known Allergies [No Known Allergies*] Allergy (Verified 02/26/24 13:07) Is last menstrual period known: Yes Last menstrual period: 01/31/24 HPI Comments Details: Presenting complaint bilateral breast pain that started after her menstrual cycles with no associated nipple discharge lumps or any other complaints [facility] Medical History Cervical high risk HPV (human papillomavirus) test positive Asthma Surgical History History of bilateral tubal ligation History of Family History Father HTN (hypertension) Mother No problems noted. 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 Sexual orientation: Straight/Heterosexual Gender identity: Female Female Reproductive History Menstrual Age of Menarche: 10 Date of last menstrual period: 01/31/24 control method: permanent sterilization Physical Exam Vital Signs: Last Vital Signs BP 120/76 02/26/24 13:02 BMI result Body Mass Index 25.5 Chest Chest palpation & inspection: normal inspection of the chest Breast/axilla inspection: normal inspection of the breasts and normal inspection of the axillae Breast/axilla palpation: normal palpation of the breasts and normal palpation of the axillae Assessment & Plan Assessment & Plan (1) Pain of both breasts: Code(s): N64.4 - Mastodynia Category: Medical Plan: Will order bilateral diagnostic mammogram and ultrasound. Instructions given the patient to schedule a follow-up appointment within 2 weeks. All questions answered, the patient verbalized understanding Orders: Orders MM tomosynthesis diagnostic BI Today N64.4 - Mastodynia US breast RT complete Today N64.4 - Mastodynia US breast LT complete Today N64.4 - Mastodynia Coding Level of Care Code Est Pt Level 3 (28082) Diagnoses Pain of both breasts N64.4
== END 2024-02-26 13:17 | disposition home or self-care (01) ==
PROVIDERS: PCP Internal Medicine; Visit Provider Obstetrics & Gynecology
DX: N64.4 Mastodynia (principal)
CPT/HCPCS: 99213

== ENCOUNTER → 2024-02-26 12:48 | Outpatient (BNVA) | payer OTHER, SELFPAY | PROVIDERS: PCP Internal Medicine; Visit Provider Obstetrics & Gynecology ==

== ENCOUNTER 2024-04-07 14:30 | Outpatient (REF) | payer OTHER, SELFPAY ==
--- NOTE | ~2024-04-07 | US_ITS ---
EXAMINATION: MM DIAGNOSTIC DIGITAL BREAST TOMOSYNTHESIS, BILATERAL US BREAST LIMITED, BILATERAL MAMMOGRAPHY: CLINICAL INFORMATION: Bilateral diffuse breast pain, off and on. 48-year-old female. COMPARISON: Mammography: 10/22/2023, 10/20/2022, 10/14/2021, 10/13/2020, and exams dating back to 2015. ULTRASOUND: Left 06/11/2018, bilateral 11/25/2015. TECHNIQUE: Digital breast tomosynthesis is performed in both the craniocaudal and mediolateral oblique views along with computer-aided detection (CAD). Synthesized 2D images are generated from the tomosynthesis. This was followed by targeted bilateral breast ultrasound. FINDINGS: The breasts are extremely dense, which lowers the sensitivity of mammography (ACR BI-RADS breast composition Category d). There are no suspicious masses, suspicious grouped calcifications, or areas of architectural distortion in either breast. The extremely dense parenchymal pattern is stable from prior exams. There is no skin or axillary abnormality. No mammographic abnormality to correlate with diffuse bilateral breast pain. ULTRASOUND: CLINICAL INFORMATION: Bilateral diffuse breast pain. COMPARISON: None TECHNIQUE: Targeted sonographic evaluation was performed using a high frequency linear transducer. Both breasts were scanned in the regions of diffuse pain, including all 4 quadrants and the retroareolar regions. Selected archived documentation. FINDINGS: RIGHT BREAST: There is a straightly dense breast tissue. No suspicious mass is seen. There is no pathologic acoustic shadowing. There is no cystic abnormality. LEFT BREAST: There is extremely dense breast tissue. No suspicious mass is seen. There is no pathologic acoustic shadowing. There is a simple cyst at the 3:00 axis left breast, 4 cm from the nipple, measuring 7 mm in diameter. This is benign. No findings in either breast to correlate with diffuse breast pain. US/US breast BI limited mamm only IMPRESSION: -No findings suspicious for malignancy in either breast. -Benign cyst left breast 3:00 axis measuring 7 mm. -No mammographic or ultrasonographic findings to correlate with diffuse bilateral breast pain. Recommend clinical management and follow-up. -Otherwise, recommend the patient resume annual screening mammography. OVERALL ASSESSMENT: Mammography: BI-RADS 2 - Benign Findings Ultrasound: BI-RADS 2 - Benign Findings RECOMMENDATION: 1. Patient should be managed based on the clinical impression. 2. Otherwise, routine annual screening mammography. This patient's information was entered into a reminder system with a target due date for their next mammogram. Electronically signed by: Wellington Jimenez MD 04/07/2024 03:47 PM MIKY BARRIOS
== END 2024-04-07 14:31 | disposition home or self-care (01) ==
LOC: HO.MAMMO 14:30
PROVIDERS: PCP Internal Medicine; Visit Provider Obstetrics & Gynecology
DX: N64.4 Mastodynia (principal)
CPT/HCPCS: 76642; 77062; 77066

== ENCOUNTER → 2024-04-07 14:30 | Outpatient (BNV) | payer OTHER, SELFPAY | PROVIDERS: PCP Internal Medicine; Visit Provider Radiology Diagnostic Radiology | DX: N64.4 Mastodynia (principal) | CPT/HCPCS: 76642; 77062; 77066 ==

== ENCOUNTER 2024-07-17 04:02 | Emergency (ER) | payer OTHER, SELFPAY ==
--- NOTE | 2024-07-17 | ECG_ITS ---
Test Reason : TACHY Blood Pressure : */* mmHG Vent. Rate : 113 BPM Atrial Rate : 113 BPM P-R Int : 138 ms QRS Dur : 72 ms QT Int : 326 ms P-R-T Axes : 67 88 54 degrees QTcB Int : 447 ms Sinus tachycardia Nonspecific ST abnormality Abnormal ECG No previous ECGs available Referred By: Michoacano Rowe Electronically Signed By: LEILANI CALERO MD
--- NOTE | ~2024-07-17 | XR_ITS ---
CLINICAL HISTORY: cough 1 view chest x-ray Comparison: None Findings: The lungs are clear. Heart size is normal. No acute fracture. IMPRESSION: 1. No acute findings. This document has been electronically signed by: Lopez Jacome MD on 07/17/2024 05:25:14
[2024-07-17 06:06] LABS: Basophils Percent Auto 0.7 % (0-2); Eosinophils Absolute Auto 0.1 X10*3/uL (0.0-0.4); Eosinophils Percent Auto 1.2 % (0-4); Hematocrit 41.3 % (37.0-47.0); Hemoglobin 14.1 g/dl (12.0-16.0); Imm Gran Abs Auto 0.03 X10*3/uL (0.00-0.03); Imm Gran Pct Auto 0.5 % (0.0-0.4); Lymphocytes Absolute Auto 0.8 X10*3/uL (1.2-4.9); Lymphocytes Percent Auto 13.7 % (20-40); MANUAL DIFF FLAG NO; Mean Corpuscular HGB Conc 34.1 g/dl (31.0-35.0); Mean Corpuscular Hemoglobin 29.1 pg (27.0-33.0); Mean Corpuscular Volume 85.2 fL (80.0-98.0); Mean Platelet Volume 8.7 fL (9.4-12.3); Monocytes Absolute Auto 0.6 X10*3/uL (0.1-1.2); Monocytes Percent Auto 10.5 % (2-11); Neutrophils Absolute Auto 4.4 x10*3/uL (2.0-8.3); Neutrophils Percent Auto 73.4 % (45-73); Platelet Count 324 X10*3/uL (160-400); Red Blood Count 4.85 X10*6/uL (4.20-5.50); Red Cell Distribution Width 12.8 % (11.0-16.0); White Blood Count 5.9 X10*3/uL (4.8-10.8)
[2024-07-17 06:09] VITALS: BP 121/82; PULSE 130; RESP 25; TEMP 36.4; O2SAT 96; BMI 25.3
[2024-07-17 06:21] LABS: Influenza A PCR POSITIVE (Negative); Influenza B PCR NEGATIVE (Negative); Resp Syncy Virus RNA Qual PCR NEGATIVE (Negative); SARS COV2 PCR INHOUSE NEGATIVE (Negative)
[2024-07-17 06:26] LABS: Anion Gap 18 (12-20); Carbon Dioxide 20 mmol/L (22-29); Chloride 103 mmol/L (96-108); Potassium 4.3 mmol/L (3.3-5.1); Sodium 137 mmol/L (135-145); Troponin-I High Sensitivity < 2.7 ng/L (<3.5-17.0)
--- NOTE | 2024-07-17 06:40 | ED_ITS ---
HPI - SOB/Dyspnea General Chief Complaint: Dyspnea Stated Complaint: sob Time Seen by Provider: 07/17/24 06:24 Source: patient Mode of arrival: ambulatory Limitations: no limitations History of Present Illness ED Provider: HPI Narrative: Patient's history of asthma been coughing since yesterday congested body aches with running nose complaining of bilateral rib pain because of the cough saturating 96% at room air Related Data Home Medications ?Medication ?Instructions ?Recorded ?Confirmed fluticasone propionate 50 1 spray intranasal BID PRN 03/18/20 mcg/actuation nasal spray,suspension montelukast 10 mg tablet 10 mg PO DAILY 03/18/20 albuterol sulfate 90 mcg/actuation 2 puff inhalation Q4H PRN 11/27/22 aerosol inhaler Previous Rx's ?Medication ?Instructions ?Recorded medroxyprogesterone 10 mg tablet 10 mg PO DAILY 10 days #30 tabs 01/23/23 (Provera) sodium sul 1.479 gram-potas ch See Rx Instructions PO PER PKG DIR 02/15/23 0.188 gram-magnes sul 0.225 gram #24 tabs tablet (Sutab) albuterol sulfate 90 mcg/actuation 2 puff inhalation Q6H PRN 07/17/24 aerosol inhaler shortness of breath or wheezing #8.5 grams codeine 10 mg-guaifenesin 100 mg/5 10 ml PO Q6H PRN cough #237 mL 07/17/24 mL oral liquid oseltamivir 75 mg capsule (Tamiflu) 75 mg PO BID 5 days #10 caps 07/17/24 prednisone 20 mg tablet 40 mg (2 x 20 mg) PO DAILY #10 tabs 07/17/24 Allergies Allergy/AdvReac Type Severity Reaction Status Date / Time No Known Allergies Allergy Verified 07/17/24 06:11 [No Known Allergies*] Review of Systems 2 Review of Systems: Yes all other systems are reviewed and are negative PMFSH Past Medical History Medical History Cervical high risk HPV (human papillomavirus) test positive Asthma Surgical History History of bilateral tubal ligation History of Family History Family History Father HTN (hypertension) Mother No problems noted. 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 Oriented X3. No acute distress. ENT: Pharynx normal. Oral Mucosa moist clear rhinorrhea Neck: Normal inspection. Neck supple. CVS: Normal heart rate and rhythm. Pulses normal. Respiratory: No respiratory distress. Equal air entry bilateral, bilateral wheezing with frequent cough no rales Skin: Skin warm and dry. Normal skin color. Normal skin turgor. Extremities: No lower extremity edema. Neuro: Oriented X 3. Medical Decision Making Medical Decision Making [facility] Narrative: Patient with asthma been having frequent asthma attacks for last 5 months got sick since yesterday with increased cough in nasal congestion no fever does complain of pain bilateral ribs workup showed influenza A positive chest x-ray negative will prescribe Tamiflu prednisone and advised to continue inhaler Lab Data [facility] Lab Attestation statement: I reviewed the patient's lab results. 07/17/24 05:03 07/17/24 05:03 Labs: Lab Results 07/17/24 07/17/24 Range/Units 04:50 05:03 WBC 5.9 (4.8-10.8) X10*3/uL RBC 4.85 (4.20-5.50) X10*6/uL Hgb 14.1 (12.0-16.0) g/dl Hct 41.3 (37.0-47.0) % MCV 85.2 (80.0-98.0) fL MCH 29.1 (27.0-33.0) pg MCHC 34.1 (31.0-35.0) g/dl RDW 12.8 (11.0-16.0) % Plt Count 324 (160-400) X10*3/uL MPV 8.7 L (9.4-12.3) fL Immature Gran % (Auto) 0.5 H (0.0-0.4) % Neut % (Auto) 73.4 H (45-73) % Lymph % (Auto) 13.7 L (20-40) % Maury % (Auto) 10.5 (2-11) % Eos % (Auto) 1.2 (0-4) % Baso % (Auto) 0.7 (0-2) % Lymph # (Auto) 0.8 L (1.2-4.9) X10*3/uL Maury # (Auto) 0.6 (0.1-1.2) X10*3/uL Eos # (Auto) 0.1 (0.0-0.4) X10*3/uL Baso # (Auto) 0.0 (0.0-0.2) X10*3/uL Abs Immat Gran (auto) 0.03 (0.00-0.03) X10*3/uL Absolute Neuts (auto) 4.4 (2.0-8.3) x10*3/uL Absolute Nucleated RBC 0.000 (0.0-0.012) X10*3/uL Nucleated RBC % (auto) 0.0 (0.0-0.2) /100WBC Sodium 137 (135-145) mmol/L Potassium 4.3 (3.3-5.1) mmol/L Chloride 103 (96-108) mmol/L Carbon Dioxide 20 L (22-29) mmol/L Anion Gap 18 (12-20) Troponin I High Sens < 2.7 (<3.5-17.0) ng/L Influenza Type A (PCR) POSITIVE A (Negative) Influenza Type B (PCR) NEGATIVE (Negative) RSV RNA Qual (PCR) NEGATIVE (Negative) SARS-CoV-2 RNA (RT-PCR) NEGATIVE (Negative) Discharge Plan Discharge Clinical Impression: Asthma with exacerbation, Influenza A Patient Disposition: Home, Self-Care Instructions: Asthma (ED), Influenza (ED) Additional Instructions: Drink plenty of fluids Continue to use your albuterol inhaler/nebulizer every 4 hours as needed Prednisone as prescribed Tamiflu and cough syrup as prescribed Follow up with lung specialist/PCP Prescriptions: New oseltamivir [Tamiflu] 75 mg capsule 75 mg PO BID 5 Days Qty: 10 0RF codeine-guaifenesin 10-100 mg/5 mL liquid 10 ml PO Q6H PRN (Reason: cough) Qty: 237 0RF albuterol sulfate 90 mcg/actuation HFA aerosol inhaler 2 puff inhalation Q6H PRN (Reason: shortness of breath or wheezing) Qty: 8.5 0RF prednisone 20 mg tablet 40 mg PO DAILY Qty: 10 0RF No Action fluticasone propionate 50 mcg/actuation spray,suspension 1 spray intranasal BID PRN montelukast 10 mg tablet 10 mg PO DAILY albuterol sulfate 90 mcg/actuation HFA aerosol inhaler 2 puff inhalation Q4H PRN Sutab 1.479-0.188- 0.225 gram tablet See Rx Instructions PO PER PKG DIR Qty: 24 0RF Rx Instructions: PO PER PKG DIR medroxyprogesterone [Provera] 10 mg tablet 10 mg PO DAILY 10 Days Qty: 30 0RF Rx Instructions: start Provera 1 tablet daily from day 15-24 cyclically every months, day 1 being 1st day of menses Print Language: Iraqi
[2024-07-17] MEDS: Albuterol Sulfate (0.083%) 2.5 MG/3 ML VIAL.NEB 5 MG INHALE (07:16)
[2024-07-17 07:17] VITALS: PULSE 98; RESP 25; O2SAT 96
[2024-07-17 07:31] VITALS: BP 113/78; PULSE 101; RESP 17; TEMP 36.5; O2SAT 93
[2024-07-17] MEDS: Oseltamivir Phosphate 75 MG CAPSULE PO (07:36)
[2024-07-17] MEDS: Benzonatate 100 MG CAPSULE 200 MG PO (07:36)
[2024-07-17 07:48] VITALS: BP 113/78; PULSE 101; RESP 17; TEMP 36.5; O2SAT 93
== END 2024-07-17 07:50 | disposition home or self-care (01) ==
PROVIDERS: Emergency Provider Internal Medicine; PCP Internal Medicine
DX: J10.1 Influenza due to other identified influenza virus with other respiratory manifestations (principal); J45.901 Unspecified asthma with (acute) exacerbation; R06.02 Shortness of breath; M79.10 Myalgia, unspecified site; R00.0 Tachycardia, unspecified; R07.81 Pleurodynia; Z03.818 Encounter for observation for suspected exposure to other biological agents ruled out; Z79.899 Other long term (current) drug therapy
CPT/HCPCS: 0241U; 36415; 71045; 80051; 84484; 85025; 93005; 94640; 99284

== ENCOUNTER → 2024-07-17 04:55 | Outpatient (BNV) | payer OTHER, SELFPAY | PROVIDERS: Emergency Provider Internal Medicine; PCP Internal Medicine; Visit Provider Internal Medicine Cardiovascular Disease | DX: R00.0 Tachycardia, unspecified (principal) | CPT/HCPCS: 93010 ==

== ENCOUNTER → 2024-07-17 07:16 | Outpatient (BNV) | payer OTHER, SELFPAY | PROVIDERS: Emergency Provider Internal Medicine; PCP Internal Medicine; Visit Provider Radiology Diagnostic Radiology | DX: R05.9 Cough, unspecified (principal) | CPT/HCPCS: 71045 ==

== ENCOUNTER 2024-07-19 04:04 | Emergency (ER) | payer OTHER, SELFPAY ==
--- NOTE | ~2024-07-19 | XR_ITS ---
CLINICAL HISTORY: cough sob Flu A+ 2 view chest x-ray. Comparison: None Findings: The lungs appear clear. There is no radiographic evidence of pneumonia. Cardiomediastinal silhouette is within normal limits. IMPRESSION: No acute cardiopulmonary abnormality. This document has been electronically signed by: Cornelius Fam MD on 07/19/2024 04:41:53
[2024-07-19 04:10] VITALS: BP 137/77; PULSE 100; RESP 24; TEMP 36.4; O2SAT 97; BMI 24.2
[2024-07-19 04:18] VITALS: BP 122/69; PULSE 95; RESP 20; TEMP 36.8; O2SAT 98
--- NOTE | 2024-07-19 04:21 | ED.SOB ---
HPI - SOB/Dyspnea General Chief Complaint: Dyspnea Stated Complaint: diff breathing Time Seen by Provider: 07/19/24 04:18 Source: patient Mode of arrival: ambulatory Limitations: no limitations History of Present Illness ED Provider: HPI Narrative: Patient diagnosed with influenza A on 07/17 with history of asthma on prednisone inhaler nebulizing treatment still coughing a lot wheezing desaturating on ambulation to 90s at home cough is mostly dry occasional with mucoid purulent phlegm Related Data Home Medications ?Medication ?Instructions ?Recorded ?Confirmed fluticasone propionate 50 1 spray intranasal BID PRN 03/18/20 mcg/actuation nasal spray,suspension montelukast 10 mg tablet 10 mg PO DAILY 03/18/20 albuterol sulfate 90 mcg/actuation 2 puff inhalation Q4H PRN 11/27/22 aerosol inhaler Previous Rx's ?Medication ?Instructions ?Recorded medroxyprogesterone 10 mg tablet 10 mg PO DAILY 10 days #30 tabs 01/23/23 (Provera) sodium sul 1.479 gram-potas ch See Rx Instructions PO PER PKG DIR 02/15/23 0.188 gram-magnes sul 0.225 gram #24 tabs tablet (Sutab) albuterol sulfate 90 mcg/actuation 2 puff inhalation Q6H PRN 07/17/24 aerosol inhaler shortness of breath or wheezing #8.5 grams codeine 10 mg-guaifenesin 100 mg/5 10 ml PO Q4-6H PRN cough #118 mL 07/17/24 mL oral liquid codeine 10 mg-guaifenesin 100 mg/5 10 ml PO Q6H PRN cough #237 mL 07/17/24 mL oral liquid oseltamivir 75 mg capsule (Tamiflu) 75 mg PO BID 5 days #10 caps 07/17/24 prednisone 20 mg tablet 40 mg (2 x 20 mg) PO DAILY #10 tabs 07/17/24 azithromycin 250 mg tablet 250 mg PO DAILY 4 days #4 tabs 07/19/24 (Zithromax Z-Ian) benzonatate 200 mg capsule 200 mg PO TID PRN cough #30 caps 07/19/24 Allergies Allergy/AdvReac Type Severity Reaction Status Date / Time No Known Allergies Allergy Verified 07/19/24 04:11 [No Known Allergies*] Review of Systems Review of Systems: Yes all other systems are reviewed and are negative [facility] Past Medical History Medical History Cervical high risk HPV (human papillomavirus) test positive Asthma Surgical History History of bilateral tubal ligation History of Family History Family History Father HTN (hypertension) Mother No problems noted. 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 Oriented X3. No acute distress. Eyes: PERRLA, No Nystagmus ENT: Pharynx normal. Oral Mucosa moist Neck: Normal inspection. Neck supple. CVS: Normal heart rate and rhythm. Pulses normal. Respiratory: No respiratory distress. Equal air entry bilateral, bilateral wheezing Abdomen: Soft and nontender. Bowel sounds are present, no mass palpable, no CVA tenderness Skin: Skin warm and dry. Normal skin color. Normal skin turgor. Extremities: No lower extremity edema. No calf tenderness Neuro: Oriented X 3. No motor deficit. Medications Administered Discontinued Medications Generic Name Dose Route Start Last Admin Trade Name Freq PRN Reason Stop Dose Admin Azithromycin 500 mg 07/19/24 06:01 07/19/24 06:16 Azithromycin 500 Mg Tablet PO 07/19/24 06:02 500 mg ONCE ONE Administration Benzonatate 200 mg 07/19/24 06:01 07/19/24 06:16 Benzonatate 100 Mg Capsule PO 07/19/24 06:02 200 mg ONCE ONE Administration Albuterol Sulfate 2.5 mg/ 0 mg 07/19/24 06:01 07/19/24 06:20 Albuterol/Ipratropium 3 ml INHALE 07/19/24 06:02 5 dose ONCE ONE Administration Guaifenesin/Codeine Phosphate 10 ml 07/19/24 06:02 07/19/24 06:16 Guaifen/Codeine Sf 200/20/10ml 10 Ml Liquid PO 07/19/24 06:03 10 ml ONCE ONE Administration Medical Decision Making Medical Decision Making [facility] Narrative: Patient with asthma with influenza A and bronchitis on steroids and nebulizing treatment still coughing a lot will give nebulizing treatment and will add Zithromax Patient signed out to Dr. Trevino anticipate to be discharged once patient feels better Differential Diagnosis Differential Diagnoses: The differential diagnosis associated with the presentation includes Bronchitis/asthma/influenza/pneumonia Radiology Impression Discussion of test interpretation with radiology: I have reviewed the radiologist's reading. Radiologist Impression: NAD Discharge Plan Discharge Clinical Impression: Asthma with exacerbation, Influenza A Patient Disposition: Still a Patient Instructions: Asthma (ED), Influenza (ED) Additional Instructions: Continue cough syrup prednisone as prescribed to your last visit Tessalon cough drops as advised Antibiotic as prescribed Follow with your PCP if not better Prescriptions: New benzonatate 200 mg capsule 200 mg PO TID PRN (Reason: cough) Qty: 30 0RF azithromycin [Zithromax Z-Ian] 250 mg tablet 250 mg PO DAILY 4 Days Qty: 4 0RF Rx Instructions: start on day 2 of therapy No Action oseltamivir [Tamiflu] 75 mg capsule 75 mg PO BID 5 Days Qty: 10 0RF albuterol sulfate 90 mcg/actuation HFA aerosol inhaler 2 puff inhalation Q6H PRN (Reason: shortness of breath or wheezing) Qty: 8.5 0RF prednisone 20 mg tablet 40 mg PO DAILY Qty: 10 0RF codeine-guaifenesin 10-100 mg/5 mL liquid 10 ml PO Q6H PRN (Reason: cough) Qty: 237 0RF codeine-guaifenesin 10-100 mg/5 mL liquid 10 ml PO Q4-6H PRN (Reason: cough) Qty: 118 0RF fluticasone propionate 50 mcg/actuation spray,suspension 1 spray intranasal BID PRN montelukast 10 mg tablet 10 mg PO DAILY albuterol sulfate 90 mcg/actuation HFA aerosol inhaler 2 puff inhalation Q4H PRN Sutab 1.479-0.188- 0.225 gram tablet See Rx Instructions PO PER PKG DIR Qty: 24 0RF Rx Instructions: PO PER PKG DIR medroxyprogesterone [Provera] 10 mg tablet 10 mg PO DAILY 10 Days Qty: 30 0RF Rx Instructions: start Provera 1 tablet daily from day 15-24 cyclically every months, day 1 being 1st day of menses Print Language: Telugu
[2024-07-19 06:13] VITALS: BP 130/81; PULSE 89; RESP 18; O2SAT 97
[2024-07-19] MEDS: Azithromycin 500 MG TABLET PO (06:16)
[2024-07-19] MEDS: Benzonatate 100 MG CAPSULE 200 MG PO (06:16)
[2024-07-19] MEDS: guaiFEN/Codeine SF 200/20/10ML 10 ML LIQUID PO (06:16)
[2024-07-19] MEDS: Albuterol Sulfate 2.5 MG, Albuterol/Iprat 2.5/0.5MG 3 ML 3 ML INHALE (06:20)
[2024-07-19 06:22] VITALS: PULSE 91; RESP 18; O2SAT 96
[2024-07-19 07:09] VITALS: BP 109/73; PULSE 91; RESP 14; TEMP 36.7; O2SAT 95
== END 2024-07-19 09:33 | disposition home or self-care (01) ==
PROVIDERS: Emergency Provider Internal Medicine; PCP Internal Medicine
DX: J10.1 Influenza due to other identified influenza virus with other respiratory manifestations (principal); J45.901 Unspecified asthma with (acute) exacerbation; R06.02 Shortness of breath; R05.9 Cough, unspecified; Z87.891 Personal history of nicotine dependence
CPT/HCPCS: 71046; 94640; 99284

== ENCOUNTER → 2024-07-19 04:15 | Outpatient (BNV) | payer OTHER, SELFPAY | PROVIDERS: Emergency Provider Internal Medicine; PCP Internal Medicine; Visit Provider Radiology Diagnostic Radiology | DX: R05.9 Cough, unspecified (principal) | CPT/HCPCS: 71046 ==

== ENCOUNTER 2024-08-05 09:35 | Outpatient (AMB) | payer OTHER, SELFPAY ==
--- NOTE | 2024-08-05 09:35 | MHC.OFFVIS ---
Vital Signs 08/05/24 09:37 Height 5 ft 7 in Weight 165 lb BMI 25.8 BP 118/70 Blood Pressure Location Rt brachial Position Sitting Pulse 91 Pulse Source Pulse Oximeter Pulse Oximetry (%) 98 Oxygen Delivery Method Room Air Intake Visit Reasons: Influenza+. 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 Dx: Asthma (ED [facility]): Details: Shasha is a pleasant 48 year old female, former smoker, quit 20 years ago less than 5 pack year history with underlying asthma. She was referred by [facility] ED for pulmonary evaluation. She reports worsening control of asthma symptoms over the last few months using Albuterol MDI more frequently in addition to Singulair. She experienced an asthma exacerbation secondary to influenza A, requiring emergency room visits on 07/17 and 07/19. Her initial treatment included Tamiflu and prednisone, followed by azithromycin and Tessalon Perles. Of note, she did note complete the Tamiflu. Historically, her asthma began in childhood and was relatively controlled without respiratory medications before this current exacerbation, with no past intubations or hospital admissions related to asthma. Recently, her asthma has required increased albuterol use, particularly before her influenza diagnosis, reaching around 10 doses daily. She was prescribed Wixela however did not use consistently or for an extended period. Prior labs revealed elevated eosinophils, indicative of a possible allergic component. Post-recovery from influenza, she reports using albuterol twice daily. She denies any significant wheezing or chest tightness over the past week but has residual cough however minimal compared to prior. She endorses seasonal allergies, no recent allergy testing. She occasionally uses allergy medications and Flonase nasal spray. She has a pet dog and notes potential allergen exposure. Her occupational environment may lack optimal ventilation, possibly contributing to symptoms. She reports sister and father with asthma. [facility] Medical History (Updated 08/05/24 @ 13:20 by Ruth Fuller NP) Cervical high risk HPV (human papillomavirus) test positive Asthma Surgical History History of bilateral tubal ligation History of Family History Father HTN (hypertension) Mother No problems noted. 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 Sexual orientation: Straight/Heterosexual Gender identity: Female Female Reproductive History Menstrual Age of Menarche: 10 Review of Systems Const Denies chills, Denies excessive sweating, Denies fever(s), Denies headache(s) and Denies night sweats Eyes Denies dry eyes, Denies irritation and Denies itchy eyes ENT Reports Normal hearing present, Denies headache(s), Denies nasal congestion, Denies nasal discharge, Denies post nasal drip and Denies sore throat Card Denies chest pain, Denies chest pain at rest, Denies chest pain with activity, Denies claudication, Denies leg edema, Denies dyspnea, Denies dyspnea on exertion, Denies orthopnea and Denies paroxysmal nocturnal dyspnea Resp Denies chest congestion, Denies excessive phlegm production, Denies pain on inspiration, Denies pain with cough, Denies dyspnea, Denies dyspnea on exertion, Denies stridor and Denies wheezing Musc Denies myalgias Neuro Reports Normal hearing present and Denies headache(s) Endo Denies excessive sweating Fidencio/Lymph Denies lymphadenopathy Aller/Immun Denies itchy eyes, Denies seasonal rhinorrhea and Denies wheezing Physical Exam Vital Signs: Last Vital Signs Pulse 91 08/05/24 09:37 BP 118/70 08/05/24 09:37 Pulse Ox 98 08/05/24 09:37 Oxygen Delivery Method Room Air 08/05/24 09:37 BMI result Body Mass Index 25.8 Const General: cooperative, healthy appearing, comfortable, no acute distress, well developed and alert Orientation/consciousness: patient oriented x3 Limitations: no limitations HEENT Head: Yes normal to inspection, Yes normocephalic and Yes atraumatic Ears: hearing grossly normal bilaterally and external ears normal Eyes General: appearance normal, both eyes and all related structures Eyelids: Yes eyelids normal Sclerae: sclerae normal EOM: EOMs intact bilaterally Neck Neck: Yes normal visual inspection and Yes no lymphadenopathy Lymphatic: no lymphadenopathy noted Chest Chest palpation & inspection: normal inspection of the chest Resp Effort & Inspection: normal respiratory effort, able to speak in complete sentences, no audible wheezes, no cough, no stridor, not tachypneic, no tripod positioning and no use of accessory muscles Auscultation: diminished lung sounds Cardio Jugular venous distension: no JVD Rate: regular rate Rhythm: regular rhythm Skin Other: warm, dry General skin exam: no rashes or lesions noted Neuro General: patient oriented x3 Cranial nerves: Yes Normal hearing present Cognition (Neuro): normal cognition Gait exam (Neuro): Normal gait present Extrem General: Yes normal to inspection, Yes capillary refill normal, Yes no clubbing, cyanosis or edema and Yes no pedal edema Psych Appearance: grossly normal and well kempt Speech and movement: Normal speech and movement present and Clear speech present Affect: normal affect Attitude: cooperative Thought process: Normal thought process present Thought content: Normal thought content present Insight: Good insight present (Psych) Judgement: Good judgement present (Psych) Results Reviewed Results Reviewed: [address] [address] XRay Report Signed Patient: Shasha Peñaloza MR#: [id number] : 1975 Acct:[id number] Age/Sex: 48 / F ADM Date: 07/19/24 Loc: HO.ED Attending Dr: Ordering Physician: Michoacano Rowe MD Date of Service: 07/19/24 Procedure(s): XR chest 2V Accession Number(s): [id number] cc: James Monique MD; Michoacano Rowe MD~ CLINICAL HISTORY: cough sob Flu A+ 2 view chest x-ray. Comparison: None Findings: The lungs appear clear. There is no radiographic evidence of pneumonia. Cardiomediastinal silhouette is within normal limits. IMPRESSION: No acute cardiopulmonary abnormality. 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 We reviewed management strategies and the role of allergy testing to identify specific allergens. Pulmonary function testing will provide a comprehensive evaluation of lung capacity and bronchodilator response. We discussed the importance of controlled albuterol use and likely need for escalated inhaler therapy. All questions were answered and patient is in agreement of plan. Will follow up to review results of RAST and PFT or sooner if needed. Orders: Orders Resp Allergy Profile Region I Today Z91.09 - Other allergy status, other than to drugs and biological substances PFT pulmonary function test Today J45.909 - Unspecified asthma, uncomplicated Complete Blood Count Auto Diff Today Z91.09 - Other allergy status, other than to drugs and biological substances Immunoglobulin E Today Z91.09 - Other allergy status, other than to drugs and biological substances Coding Level of Care Code New Pt Level 4 (16160) Diagnoses Asthma J45.909 Environmental allergies Z91.09
[2024-08-05 09:37] VITALS: BP 118/70; PULSE 91; O2SAT 98; BMI 25.8
== END 2024-08-05 10:07 | disposition home or self-care (01) ==
PROVIDERS: PCP Internal Medicine; Referring Provider Internal Medicine; Visit Provider Nurse Practitioner Family
DX: J45.909 Unspecified asthma, uncomplicated (principal); Z91.09 Other allergy status, other than to drugs and biological substances
CPT/HCPCS: 99204

== ENCOUNTER → 2024-08-05 09:35 | Outpatient (BNVA) | payer OTHER, SELFPAY | PROVIDERS: PCP Internal Medicine; Referring Provider Internal Medicine; Visit Provider Nurse Practitioner Family ==

== ENCOUNTER 2024-08-05 10:10 | Outpatient (REF) | payer OTHER, SELFPAY ==
[2024-08-05 11:19] LABS: MANUAL DIFF FLAG NO
[2024-08-05 11:35] LABS: Basophils Absolute Auto 0.1 X10*3/uL (0.0-0.2); Basophils Percent Auto 1.1 % (0-2); Eosinophils Absolute Auto 0.3 X10*3/uL (0.0-0.4); Eosinophils Percent Auto 5.8 % (0-4); Hematocrit 40.1 % (37.0-47.0); Hemoglobin 13.7 g/dl (12.0-16.0); Imm Gran Abs Auto 0.01 X10*3/uL (0.00-0.03); Imm Gran Pct Auto 0.2 % (0.0-0.4); Lymphocytes Absolute Auto 1.8 X10*3/uL (1.2-4.9); Lymphocytes Percent Auto 33.3 % (20-40); Mean Corpuscular HGB Conc 34.2 g/dl (31.0-35.0); Mean Corpuscular Hemoglobin 28.8 pg (27.0-33.0); Mean Corpuscular Volume 84.4 fL (80.0-98.0); Mean Platelet Volume 9.3 fL (9.4-12.3); Monocytes Absolute Auto 0.4 X10*3/uL (0.1-1.2); Monocytes Percent Auto 6.9 % (2-11); Neutrophils Absolute Auto 2.9 x10*3/uL (2.0-8.3); Neutrophils Percent Auto 52.7 % (45-73); Platelet Count 351 X10*3/uL (160-400); Red Blood Count 4.75 X10*6/uL (4.20-5.50); Red Cell Distribution Width 12.4 % (11.0-16.0); White Blood Count 5.5 X10*3/uL (4.8-10.8)
[2024-08-08 07:49] LABS: Class Alternaria alternata 0; Class Aspergillus fumigatus 0; Class Bermuda Grass 2; Class Birch 4; Class Cat Dander 3; Class Cladosporium herbarum 0; Class Cockroach 0/1; Class Common Ragweed 3; Class Cottonwood 1; Class Derm. pterony 4; Class Dermatophagoides farinae 5; Class Dog Dander 6; Class Elm 2; Class Maple Box Elder 2; Class Mountain Cedar 1; Class Mouse Urine Protein 2; Class Mugwort 1; Class Oak 3; Class Penicillium crysogenum 0; Class Rough Pigweed 0/1; Class Sheep Sorrel 1; Class Sycamore 1; Class Timothy Grass 3; Class Walnut Tree 2; Class White Ash 2; Class White Mulberry 0/1; E005 - IgE Dog Dander >100 kU/L; E072-IgE Mouse Urine 0.73 kU/L; G002 IgE Bermuda Grass 2.63 kU/L; I006-IgE Cockroach, German 0.24 kU/L; Immunoglobulin E 1750 kU/L (<OR=114); M001 IgE Penicillium chrysogen <0.10 kU/L; M002 - IgE Cladosporium herbar <0.10 kU/L; M003 - IgE Aspergillus fumigat <0.10 kU/L; M006 - IgE Alternaria alternat <0.10 kU/L; T001 IgE Maple/Box Elder 1.22 kU/L; T006 - IgE Cedar, Mountain 0.43 kU/L; T010 - IgE Walnut 0.82 kU/L; T011 - IgE Maple Leaf Sycamore 0.48 kU/L; T014 - IgE Cottonwood 0.37 kU/L; T015 - IgE Ash, White 1.41 kU/L; T070 - IgE White Mulberry 0.31 kU/L; W001 - IgE Ragweed, Short 4.42 kU/L; W006 - IgE Mugwort 0.55 kU/L; W014 IgE Pigweed, Common 0.15 kU/L; W018 IgE Sheep Sorrel 0.43 kU/L
== END 2024-08-05 10:11 | disposition home or self-care (01) ==
LOC: HO.WFDLDS 10:10
PROVIDERS: Visit Provider Nurse Practitioner Family
DX: Z91.09 Other allergy status, other than to drugs and biological substances (principal)
CPT/HCPCS: 36415; 82785; 85025; 86003

== ENCOUNTER 2024-08-28 10:34 | Outpatient (AMB) | payer OTHER, SELFPAY ==
--- NOTE | 2024-08-28 10:39 | MHC.OFFWIV ---
Intake Vital Signs 08/28/24 10:40 Weight 164 lb BP 116/80 Blood Pressure Location Rt brachial Position Sitting Pulse 98 Pulse Source Pulse Oximeter Temp 98.7 F Temp Source Oral Pulse Oximetry (%) 95 Oxygen Delivery Method Room Air Intake Visit Reasons: EP SOB, inhaler not working Intake Note: Patient here for cough and SOB, inhalers have not been helping. Patient Tobacco Use Status: Former Tobacco user Allergies No Known Allergies [No Known Allergies*] Allergy (Verified 08/28/24 10:41) Do you need a note to return to daycare/school/sports/work: No HPI HPI Comments History of Present Illness Details History - The patient is a 48-year-old female presenting with shortness of breaths. - A month ago, her symptoms commenced after a flu episode, affecting her asthma and leading to significant breathing difficulties necessitating two ER visits where treatments included medications parmjit to Prednisone. Previous medical assistance included a course of antibiotics and an antitussive, providing little improvement. 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 - This exacerbation began earlier in the week and escalated to severe breathing difficulties during the nighttime. She has been using her albuterol inhaler without much relief, several times overnight last night. - No fever is reported, but severe wheezing, and significant discomfort persist with the use of outdated albuterol nebulizers. Physical Exam General: Cooperative, healthy appearing, comfortable and no acute distress Orientation/consciousness: Patient oriented x3 Limitations: No limitations Head: Normal to inspection Ears: Hearing grossly normal bilaterally, external ears normal and TM's normal bilaterally Nose: Normal external nose present, Normal nares present and No nasal discharge present Face and sinus: Normal facial exam and Yes sinuses nontender Mouth: Normal oral and palatal mucosa present and moist mucous membranes Throat: Yes tonsils normal, Yes uvula midline. Posterior oropharynx erythema Eyes: Appearance normal, both eyes and all related structures Neck: Normal visual inspection Respiratory: Inspiratory and expiratory wheezes throughout. Normal respiratory effort, able to speak in complete sentences, Actively coughing, no respiratory distress, not tachypneic, no tripod positioning and no use of accessory muscles. present Cardiovascular: Regular rate and rhythm. Normal S1 and S2. Skin: No rashes or lesions noted Neuro: Patient oriented x3 Extremities: Normal to inspection and Yes no clubbing, cyanosis or edema [facility] Medical History (Updated 08/28/24 @ 10:59 by Jocelin South PA-C) Cervical high risk HPV (human papillomavirus) test positive Asthma Surgical History History of bilateral tubal ligation History of Family History Father HTN (hypertension) Mother No problems noted. 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 Sexual orientation: Straight/Heterosexual Gender identity: Female Female Reproductive History Menstrual Age of Menarche: 10 Review of Systems Const All systems reviewed & are unremarkable except as noted in HPI and below Physical Exam Vital Signs: Last Vital Signs Temp 98.7 F 08/28/24 10:40 Pulse 107 H 08/28/24 10:40 BP 116/80 08/28/24 10:40 Pulse Ox 95 08/28/24 10:40 Oxygen Delivery Method Room Air 08/28/24 10:40 Assessment & Plan Assessment & Plan (1) Lower respiratory infection (e.g., bronchitis, pneumonia, pneumonitis, pulmonitis): Code(s): J22 - Unspecified acute lower respiratory infection Plan: Patient's oxygen saturation is 94% which is lower than her baseline of 98%, she is well-appearing but has inspiratory and expiratory wheezes on auscultation. The plan is to manage the patient?s asthma exacerbation and respiratory infection through a comprehensive approach, involving further diagnostic tests like a chest x-ray, and performing viral screenings for influenza, RSV, and COVID. I have prescribed DuoNeb nebulizations thrice daily, meds sent to pharmacy. As patient does not tolerate prednisone very well we decided to do a SoluMedrol taper, and a Z-Ian for a possible bacterial infection as well as for its anti-inflammatory effects. The chest x-ray shows a true pneumonia, I will add a 2nd antibiotic, Augmentin. The patient has been instructed on the use of medications and advised to be vigilant with the timing of administration to ensure efficacy while minimizing side effects. Regular use of the albuterol inhaler and monitoring for improvement have been emphasized, alongside executing portal-based follow-up for any complications or unchanged symptoms. Patient will call me if the Solu-Medrol is not strong enough and we can switch to 40 mg of prednisone for 5 days. Patient was informed and verbally consented to the use of an ambient scribe for clinic note documentation during this visit Orders: Orders SARS-CoV2/FLU/RSV Today R09.89 - Other specified symptoms and signs involving the circulatory and respiratory systems XR chest 2V Today R05.9 - Cough, unspecified Medications: New azithromycin For 250 mg dose pack: take 500 mg today (day 1), then 250 mg for 4 days (days 2-5) PO 6 tabs 0RF ipratropium-albuterol 0.5 mg-3 mg(2.5 mg base)/3 mL 3 mL inhalation Q6-8H PRN 90 mL 0RF wheezing methylprednisolone PO PER PKG DIR for 6 days 21 ea 0RF Coding Level of Care Code Est Pt Level 4 (11954) Diagnoses Lower respiratory infection (e.g., bronchitis, pneumonia, pneumonitis, pulmonitis) J22
[2024-08-28 10:40] VITALS: BP 116/80; PULSE 98; TEMP 37.1; O2SAT 95
== END 2024-08-28 11:05 | disposition home or self-care (01) ==
PROVIDERS: PCP Internal Medicine; Visit Provider Physician Assistant
DX: J22 Unspecified acute lower respiratory infection (principal)

== ENCOUNTER 2024-08-28 10:34 | Outpatient (REF) | payer OTHER, SELFPAY ==
--- NOTE | ~2024-08-28 | XR_ITS ---
CLINICAL HISTORY: R05.9 - Cough, unspecified 2 view chest x-ray Comparison: CR - XR CHEST 2V - 07/19/24 04:27 EST Findings: Small left perihilar airspace opacities may indicate developing pneumonia /bronchiolitis. Normal size heart. No acute fracture. IMPRESSION: Small left perihilar airspace opacities may indicate developing pneumonia /bronchiolitis. This document has been electronically signed by: Luis Miguel Woods MD on 08/28/2024 11:33:21
[2024-08-28 14:04] LABS: Influenza A PCR NEGATIVE (Negative); Influenza B PCR NEGATIVE (Negative); Resp Syncy Virus RNA Qual PCR POSITIVE (Negative); SARS COV2 PCR INHOUSE NEGATIVE (Negative)
== END 2024-08-28 10:35 | disposition home or self-care (01) ==
LOC: HO.HMGCX 10:34
PROVIDERS: Visit Provider Physician Assistant
DX: J22 Unspecified acute lower respiratory infection (principal); R05.9 Cough, unspecified; R09.89 Other specified symptoms and signs involving the circulatory and respiratory systems
CPT/HCPCS: 0241U; 71046

== ENCOUNTER → 2024-08-28 11:08 | Outpatient (BNV) | payer OTHER, SELFPAY | PROVIDERS: Visit Provider Radiology Diagnostic Radiology | DX: J21.9 Acute bronchiolitis, unspecified (principal); J18.9 Pneumonia, unspecified organism | CPT/HCPCS: 71046 ==

== ENCOUNTER 2024-09-09 13:47 | Outpatient (AMB) | payer OTHER, SELFPAY ==
--- NOTE | 2024-09-09 13:46 | MHC.OFFVIS ---
Vital Signs 09/09/24 13:58 Height 5 ft 7 in Weight 166 lb 4 oz BMI 26.0 BP 131/75 Blood Pressure Location Lt brachial Position Sitting Pulse 95 Intake Visit Reasons: breast pain & genetic testing Intake Note: Patient is seen in office for breast pain & genetic testing. Pt c/o: had bilateral breast pain in the past, then had an ultrasound done, currently breast are okay, at times gets pain, states might be hormonal, no prior breast surgeries or complications, maternal grandmother was Dx with breast cancer mm/us:04/07/25 Applications Analyst Required: No Lieutenant Shift Supervisor: Lieutenant Shift Supervisor Present Accompanied by: Self / Same As Patient Allergies No Known Allergies [No Known Allergies*] Allergy (Verified 09/09/24 13:55) Medication List - Last Reconciled 09/09/24 by Quan Garcia MD albuterol sulfate 90 mcg/actuation 2 puffs inhalation Q6H PRN albuterol sulfate 90 mcg/actuation 2 puffs inhalation Q4H PRN fluticasone propionate 50 mcg/actuation 1 spray intranasal BID PRN ipratropium-albuterol 0.5 mg-3 mg(2.5 mg base)/3 mL 3 mL inhalation Q6-8H PRN levothyroxine 88 mcg PO DAILY HPI Comments Details: 48-year-old female patient presenting with complaints of bilateral breast pain. Pain comes and goes and seems to be related with her menstrual cycle. Her periods have been irregular lately. She underwent evaluation with mammogram and ultrasound on 04/07/2024. Mammogram revealed no suspicious findings in either side (BI-RADS 2). Ultrasound revealed no suspicious findings but did reveal a left breast simple cyst at the 03:00 location (BI-RADS 2). Her family history is significant for a maternal grandmother with breast cancer and pancreatic cancer. Her mother is currently being worked up for possible pancreatic or colon cancer in [place]. None of her family members have undergone genetic testing. There is no history of ovarian cancer. Her menarche was the age of 10, she is . She is uncertain of any Ashkenazi Rastafarian heritage. She currently denies any pain or palpable lumps in either breast. She was interested in pursuing genetic testing given her family history. [facility] Medical History Cervical high risk HPV (human papillomavirus) test positive Asthma Surgical History History of bilateral tubal ligation History of Family History Father HTN (hypertension) Mother No problems noted. 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 Sexual orientation: Straight/Heterosexual Gender identity: Female Female Reproductive History Menstrual Age of Menarche: 10 Date of last menstrual period: 09/09/24 Total pregnancies: 2 Number of Living Children: 2 Review of Systems Const All systems reviewed & are unremarkable except as noted in HPI and below Physical Exam Const General: cooperative and no acute distress Nutritional Appearance: well nourished Orientation/consciousness: patient oriented x3 Limitations: no limitations HEENT Head: Yes normocephalic and Yes atraumatic Ears: hearing grossly normal bilaterally Chest Other: Left breast: No skin change, no nipple retraction, no nipple discharge, palpable smooth round mobile, cystic appearing mass in the 3 o'clock position left breast proximally 1 to 1.5 cm in diameter, no enlarged lymph nodes. Right breast: No skin change, no nipple retraction, no nipple discharge, no palpable mass, no enlarged lymph nodes Chest/axillae images: 1. Palpable cyst in the 3 o'clock position left breast Resp Effort & Inspection: normal respiratory effort, no audible wheezes, no cough and no respiratory distress Cardio Jugular venous distension: no JVD GI Inspection: Yes normal to inspection Skin Other: Warm, dry, no rash Neuro General: patient oriented x3 Extrem General: Yes no clubbing, cyanosis or edema Assessment & Plan Assessment & Plan (1) Family history of breast cancer: Code(s): Z80.3 - Family history of malignant neoplasm of breast Category: Medical (2) Family history of pancreatic cancer: Code(s): Z80.0 - Family history of malignant neoplasm of digestive organs Category: Medical (3) Pain of both breasts: Code(s): N64.4 - Mastodynia Category: Medical Plan 48-year-old female patient the family history of breast cancer in her grandmother presenting with complaints of bilateral breast pain which may be hormonal in nature. Examination today revealed a palpable mass in the left breast 3 o'clock position corresponding to a cyst seen on ultrasound. No other suspicious findings were identified in either breast. We reviewed her family history of breast cancer and pancreatic cancer and discussed the role of genetic testing. She wishes to proceed with this testing today and will return approximately 6 weeks to review the results. She is welcome to return sooner for any new breast symptoms. Coding Level of Care Code New Pt Level 4 (78125) Diagnoses Family history of breast cancer Z80.3 Family history of pancreatic cancer Z80.0 Pain of both breasts N64.4
[2024-09-09 13:58] VITALS: BP 131/75; PULSE 95; BMI 26.0
== END 2024-09-09 14:40 | disposition home or self-care (01) ==
LOC: HO.HGS 13:48
PROVIDERS: PCP Internal Medicine; Visit Provider Surgery
DX: Z80.3 Family history of malignant neoplasm of breast (principal); Z80.0 Family history of malignant neoplasm of digestive organs; N64.4 Mastodynia
CPT/HCPCS: 99204

== ENCOUNTER → 2024-09-09 13:47 | Outpatient (BNVA) | payer OTHER, SELFPAY | PROVIDERS: PCP Internal Medicine; Visit Provider Surgery ==

== ENCOUNTER 2024-09-30 10:01 | Outpatient (REF) | payer OTHER, SELFPAY ==
--- NOTE | 2024-09-30 10:06 | PFT_ITS ---
Spirometry [] Lung Volumes [] Diffusion Capacity [] Methacholine Challenge [] Flow Volume Loops [] MVV [] MIP/MEP(Max inspiratory pressure/Max expiratory pressure) [] 6 Minute Walk Test [] ABG [] Interpretation [] MTDD
[2024-09-30 10:57] VITALS: PULSE 79; O2SAT 99
== END 2024-09-30 10:02 | disposition home or self-care (01) ==
LOC: HO.RESP 10:01
PROVIDERS: Visit Provider Nurse Practitioner Family
DX: J45.909 Unspecified asthma, uncomplicated (principal)
CPT/HCPCS: 94010; 94640; 94727; 94729

== ENCOUNTER → 2024-09-30 10:06 | Outpatient (BNV) | payer OTHER, SELFPAY | PROVIDERS: Visit Provider Internal Medicine Pulmonary Disease | DX: J45.909 Unspecified asthma, uncomplicated (principal) | CPT/HCPCS: 94060; 94727; 94729 ==

== ENCOUNTER 2024-10-24 09:38 | Outpatient (AMB) | payer OTHER, SELFPAY ==
--- NOTE | 2024-10-24 09:40 | A.OFFVIS_ITS ---
Vital Signs 10/24/24 09:41 Height 5 ft 7 in Weight 169 lb 6 oz BMI 26.5 BP 114/78 Blood Pressure Location Rt brachial Position Sitting Pulse 88 Pulse Source Pulse Oximeter Pulse Oximetry (%) 97 Oxygen Delivery Method Room Air Intake Visit Reasons: Asthma Allergies No Known Allergies [No Known Allergies*] Allergy (Verified 10/24/24 09:44) HPI HPI Asthma: Details: Shasha is a pleasant 49 year old female, former smoker, quit 20 years ago less than 5 pack year history with underlying asthma. Historically, her asthma began in childhood and was relatively controlled without respiratory medications before choco Influenza A in July 2024. She was started on Wixela which she has been using 1 inhalation QD and using Singulair intermittently with suboptimal effect. She also uses daily antihistamine. Today she presents to review PFT and RAST. She denies any visits to urgent care or hospitalizations related to respiratory distress since the last visit. [facility] Medical History Cervical high risk HPV (human papillomavirus) test positive Asthma Surgical History History of bilateral tubal ligation History of Family History Father HTN (hypertension) Mother No problems noted. 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 Sexual orientation: Straight/Heterosexual Gender identity: Female Female Reproductive History Menstrual Age of Menarche: 10 Review of Systems Const Denies chills, Denies excessive sweating, Denies fever(s), Denies headache(s) and Denies night sweats Eyes Denies dry eyes, Denies irritation and Denies itchy eyes ENT Reports Normal hearing present, Denies headache(s), Reports nasal congestion, Reports nasal discharge, Denies post nasal drip and Denies sore throat Card Denies chest pain, Denies chest pain at rest, Denies chest pain with activity, Denies claudication, Denies leg edema, Denies orthopnea and Denies paroxysmal nocturnal dyspnea Resp Denies chest congestion, Denies excessive phlegm production, Denies pain on inspiration, Denies pain with cough, Denies stridor and Denies wheezing Musc Denies myalgias Neuro Reports Normal hearing present and Denies headache(s) Endo Denies excessive sweating Fidencio/Lymph Denies lymphadenopathy Aller/Immun Denies itchy eyes and Denies wheezing Physical Exam Vital Signs: Last Vital Signs Pulse 88 10/24/24 09:41 BP 114/78 10/24/24 09:41 Pulse Ox 97 10/24/24 09:41 Oxygen Delivery Method Room Air 10/24/24 09:41 BMI result Body Mass Index 26.5 Const General: cooperative, healthy appearing, comfortable, no acute distress, well developed and alert Orientation/consciousness: patient oriented x3 Limitations: no limitations HEENT Head: Yes normal to inspection, Yes normocephalic and Yes atraumatic Ears: hearing grossly normal bilaterally and external ears normal Eyes General: appearance normal, both eyes and all related structures Eyelids: Yes eyelids normal Sclerae: sclerae normal EOM: EOMs intact bilaterally Neck Neck: Yes normal visual inspection and Yes no lymphadenopathy Lymphatic: no lymphadenopathy noted Chest Chest palpation & inspection: normal inspection of the chest Resp Effort & Inspection: normal respiratory effort, able to speak in complete sentences, no audible wheezes, no cough, no stridor, not tachypneic, no tripod positioning and no use of accessory muscles Auscultation: diminished lung sounds Cardio Jugular venous distension: no JVD Rate: regular rate Rhythm: regular rhythm Skin Other: warm, dry General skin exam: no rashes or lesions noted Neuro General: patient oriented x3 Cranial nerves: Yes Normal hearing present Cognition (Neuro): normal cognition Gait exam (Neuro): Normal gait present Extrem General: Yes normal to inspection, Yes capillary refill normal, Yes no clubbing, cyanosis or edema and Yes no pedal edema Psych Appearance: grossly normal and well kempt Speech and movement: Normal speech and movement present and Clear speech present Affect: normal affect Attitude: cooperative Thought process: Normal thought process present Thought content: Normal thought content present Insight: Good insight present (Psych) Judgement: Good judgement present (Psych) Assessment & Plan Assessment & Plan (1) Asthma: Code(s): J45.909 - Unspecified asthma, uncomplicated Category: Medical (2) Environmental allergies: Code(s): Z91.09 - Other allergy status, other than to drugs and biological substances Category: Medical Plan Reviewed PFT which revealed mild obstructive ventilatory defect with positive bronchodilator response, normal DLCO. Encouraged patient to increase Wixela to BID and daily intake of Singulair. If no improvement will increase Wixela. Reviewed RAST which revealed multiple environmental allergens, IgE 1750, Eosinophils 5.8%. Reviewed ways to minimize allergen exposures. Patient with significant allergic component, consider allergy referral for allergen immunotherapy. All questions were answered and patient is in agreement of plan. Will follow up in 6-8 weeks or sooner if needed. Medications: New fluticasone propion-salmeterol 250-50 mcg/dose (Wixela Inhub) 1 ea inhalation BID 60 ea 6RF Coding Level of Care Code Est Pt Level 4 (03083) Diagnoses Asthma J45.909 Environmental allergies Z91.09
[2024-10-24 09:41] VITALS: BP 114/78; PULSE 88; O2SAT 97; BMI 26.5
== END 2024-10-24 10:17 | disposition home or self-care (01) ==
LOC: HO.HPSW 09:38
PROVIDERS: PCP Internal Medicine; Visit Provider Nurse Practitioner Family
DX: J45.909 Unspecified asthma, uncomplicated (principal); Z91.09 Other allergy status, other than to drugs and biological substances
CPT/HCPCS: 99214

== ENCOUNTER 2025-01-29 09:56 | Outpatient (AMB) | payer OTHER, SELFPAY ==
--- NOTE | 2025-01-29 10:01 | MHC.PC.OV ---
Vital Signs 01/29/25 10:06 Height 5 ft 7 in Weight 165 lb BMI 25.8 BP 120/84 Blood Pressure Location Rt brachial Position Sitting Respiration 16 Pulse 93 Pulse Source Pulse Oximeter Temp 96.9 F Temp Source Temporal Artery Scan Pulse Oximetry (%) 96 Oxygen Delivery Method Room Air Intake Visit Reasons: Routine-Croke Pt Specification Writer Required: No Allergies No Known Allergies (No Known Allergies*) Allergy (Verified 01/29/25 10:01) Tobacco use date assessed: 01/29/25 HPI HPI Comments History of Present Illness Details 49 year old female with Moderate persistent asthma and hypothyroidism here to establish care. She is using Wixela and Albuterol PRN for her asthma and feels it is well controlled. She states she has not had to use her Albuterol in several months. She was seen by [facility] and given hormone patches. She has been using them for about 3 weeks. She is perimenopausal. She gets sweats a night about once a week and hot flushes during the day on and off. She was having dizziness and sweating about 2 weeks ago and went to who sent her to the ER. She had labs and was told her TSH was elevated. She does not know the exact level. She is currently on Levothyroxine 88 mcg. The last TSH I can find in her record was June 2023 and it was 5.68. She had a mammogram 04/2024. PAP 10/2021 and Colonoscopy 06/2023. She has been on Nicorette gum for many years. She is not sure how much she is using but wonders if this could be related. [facility] Medical History (Updated 01/29/25 @ 12:01 by UMESH Resendez) Asthma Cervical high risk HPV (human papillomavirus) test positive Dizziness Nicotine dependence Perimenopausal Surgical History (Updated 01/27/25 @ 16:47 by Yvonne Lopez) History of bilateral tubal ligation History of History of colonoscopy (~07/03/23) Family History Father HTN (hypertension) Mother No problems noted. 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 How often do you have a drink containing alcohol?: 2-4 times a month 2. How many drinks containing alcohol do you have on a typical day when you are drinking?: 1 or 2 3. How often do you have six or more drinks on one occasion?: Never Total Score: 2 Review of Systems Const Details: CONSTITUTIONAL Hot Flushes and night sweats HEAD/NECK Dizziness EAR/NOSE/MOUTH/THROAT Negative RESPIRATORY Negative CARDIOVASCULAR Negative GASTROINTESTINAL Negative NEUROLOGICAL Negative PSYCHIATRIC Negative Physical exam (Primary Care) Vital Signs: Last Vital Signs Temp 96.9 F 01/29/25 10:06 Pulse 93 01/29/25 10:06 Resp 16 01/29/25 10:06 BP 120/84 01/29/25 10:06 Pulse Ox 96 01/29/25 10:06 Oxygen Delivery Method Room Air 01/29/25 10:06 GENERAL Well developed, Well nourished, in no apparent distress HEENT Head-Normocephalic Eyes- PERRLA, EOMI, Conjuctiva clear, lids WNL Ears- Canals clear, TMs WNL Mouth/Throat-No lesions, no erythema, no exudate Neck- Supple, No lymphadenopathy, thyroid WNL RESPIRATORY Normal I:E, Clear to auscultation CARDIOVASCULAR Regular, rate and rhythm, No murmurs or rubs GASTROINTESTINAL Soft, nontender, normal bowel sounds, no masses NEUROLOGICAL Gait normal PSYCHIATRIC Oriented to person, place and time Mood and affect WNL Appearance WNL Speech WNL Thought processes WNL BMI result Body Mass Index 25.8 Tobacco/Smoking Status: Tobacco use Status Tobacco use date assessed 01/29/25 01/29/25 10:09 Patient Tobacco Use Status Former Tobacco user 01/29/25 10:09 Tobacco use type Cigarette 01/29/25 10:09 e-Cigarette/Vaping Use Never Used 01/29/25 10:09 Coding Level of Care Code Established Pt Est Pt Level 4 (74737) Patient Type Established Diagnoses Dizziness R42 Perimenopausal N95.1 Hypothyroid E03.9 Asthma J45.909 Nicotine dependence F17.200 Time Spent (min) 35 Comment Time spent on Chart review, H&P, patient education, order submission and arranging FU Assessment & Plan Assessment & Plan (1) Dizziness: Code(s): R42 - Dizziness and giddiness Category: Medical Plan: Will get labs. Patient was encouraged to increase fluid intake. Patient to follow up in 6 weeks or sooner if symptoms persist or worsen. (2) Perimenopausal: Code(s): N95.1 - Menopausal and female climacteric states Category: Medical Plan: Patient advised to give the patches a little more time. Discussed other options for treatment of symptoms. Will follow up in 6 weeks. Discussed other options for treatment of symptoms. (3) Hypothyroid: Code(s): E03.9 - Hypothyroidism, unspecified Category: Medical Plan: Will check TSH. May need adjustment of Levothyroxine dosage. Patient to follow up in 6 weeks or sooner if symptoms persist or worsen. (4) Asthma: Code(s): J45.909 - Unspecified asthma, uncomplicated Category: Medical Plan: Controlled. Patient will continue current medications. Will monitor. Patient will follow up in 6 months. (5) Nicotine dependence: Code(s): F17.200 - Nicotine dependence, unspecified, uncomplicated Category: Medical Plan: Discussed strategies for decreasing and stopping Nicotine gum. Orders: Orders Complete Blood Count Auto Diff Today R42 - Dizziness and giddiness Vitamin D 25-OH Total Today R42 - Dizziness and giddiness Comprehensive Met. Panel Today R42 - Dizziness and giddiness TSH reflex Free T4 Today E03.9 - Hypothyroidism, unspecified Medications: New albuterol sulfate 90 mcg/actuation 2 puffs inhalation Q4H PRN 8.5 grams 11RF asthma
[2025-01-29 10:06] VITALS: BP 120/84; PULSE 93; RESP 16; TEMP 36.1; O2SAT 96; BMI 25.8
--- OUTSIDE RECORDS SUMMARY | 2025-01-29 11:07 | XMS_ITS ---
Author Name [facility] Organization Unknown Encounters Encounter Type Encounter Reason Primary Diagnosis Location Date Emergency DIZZINESS,LIGHTHEADE D ,SWEATING,SINCE LAST NIGHT [facility] 01/06/2025 Care Team Organization Name Specialty Phone Email Start Date End Da te [facility] 0 01/17/2025 [facility] 0 01/13/2025
--- OUTSIDE RECORDS SUMMARY | 2025-01-29 11:07 | XMS_ITS | Clinical Summary ---
Author Organization [facility] Address [address] [place] [address] [place] [id number] Phone Care Team Providers Care Courtesy Car Driver Name Role Phone James Monique MD Primary Care Provider Allergies No known active allergies Medications levothyroxine sodium (SYNTHROID ORAL) Active Social History Tobacco Use Types Packs/Day Years Used Date Smoking Tobacco: Never Smokeless Tobacco: Never Alcohol Use Standard Drinks/Week Comments Yes 0 (1 standard drink = 0.6 oz pur e alcohol) occasionally Education Answer Date Recorded Are you interested in more education? Not on charles e 09/29/2022 Are you concerned about learning? Not on file 09/29/2022 No 09/29/2022 No 09/29/2022 Digital Access Answer Date Recorded No 10/31/2022 No 10/31/2022 No 10/31/2022 Reliable internet access at home? Not on file 10/31/2022 Device with a working camera? Not on file Comments Unknown Sex and Gender Information Value Date Recorded Sex Assigned at Female 02/02/2018 2:11 PM EDT Legal Sex Female 2:05 PM EDT Gender Identity Female 02/02/2018 2:11 PM EDT Sexual Orientation Straight 02/02/2018 2: 11 PM EDT Last Filed Vital Signs Vital Sign Reading Time Taken Comments Blood Pressure 136/90 02/02/2018 3:00 PM EDT Pulse 73 02/02/2018 3:45 PM EDT Temperature 36.7 C (98 F) 02/02/2018 2:16 PM EDT Respiratory Rate 14 02/02/2018 3:45 PM EDT Oxygen Saturation 98% 02/02/2018 4:00 PM EDT Inhaled Oxygen Concentration - - Weight 74.8 kg (165 lb) 02/02/2018 2:16 PM EDT Height 170.2 cm (5' 7 ) 02/02/2018 2:16 PM EDT Body Mass Index 25.84 02/02/2018 2:16 PM EDT Plan of Treatment Not on file Medical Devices Not on file Insurance [address] [place], [place] [id number] [facility] [address] [place] [id number] [place] [id number] [facility] Care Teams Courtesy Car Driver Relationship Specialty Start Date End Date James Monique MD [address] [place] [address] [place] [address] PCP - General Internal Medicine 02/02/18 Additional Source Comments The information contained in this document represents components of the legal health record. It is not the complete legal health record.[facility]
--- OUTSIDE RECORDS SUMMARY | 2025-01-29 11:07 | XMS_ITS | Patient Health Record ---
Author Organization [employer] [facility] Address [address] [place] [phone] Care Team Providers Care Project Manager Retail Name Role Phone OUT OF STATE, Primary Care Provider Donna Ledesma Allergies No Known Allergies Reason For Referral No Information Medications Medication SIG (Take, Route, Frequency, Duration) Notes Start Date End Date Status progesterone Active Synthroid Active albuterol Active Vital Signs Temperature 98.3 degrees Fahrenheit 01/06/2025 Oximetry 100 % 01/06/2025 Blood pressure diastolic 81 mm Hg 01/06/2025 Blood pressure systolic 112 mm Hg 01/06/2025 Encounters Encounter Location Date Provider Diagnosis [facility] [address] [id number] 01/06/2025 Donna Morrow Dizziness R42 Assessments Encounter Date Diagnosis (ICD Code) Assessment Notes Treatment Notes Treatment Clinical Notes Section Notes 01/06/2025 Dizziness (ICD-10 - R42) Discussed possible etiologies for symptoms including electrolyte imbalance, orthostatic hypotension, cardiac arrythmia, blood clot. Given recent estrogen therapy initiation, tachycardia and severity of symptoms recommend ER for further evaluation. Patient and family members in agreement with plan - declines EMS, but sister is an RN and will drive her directly to [facility] ER, Plan Of Treatment No Information Insurance Providers Payer Name Payer Address Payer Phone Subscriber Number Group Number Insured Name Patient Relationship to Insured Coverage Start Date Coverage End Date [facility] [address] [address] [place] [address] [id number] Shasha Peñaloza Self - patient is the insured Medical (General) History Medical History History ICD Code anxiety environmental allergies panic attacks thyroid disease tubal ligation c section
== END 2025-01-29 11:03 | disposition home or self-care (01) ==
LOC: HO.HMCHD 09:57
PROVIDERS: PCP Internal Medicine; Visit Provider Physician Assistant Medical
DX: R42 Dizziness and giddiness (principal); N95.1 Menopausal and female climacteric states; E03.9 Hypothyroidism, unspecified; J45.909 Unspecified asthma, uncomplicated; F17.200 Nicotine dependence, unspecified, uncomplicated

== ENCOUNTER 2025-03-10 09:03 | Outpatient (REF) | payer OTHER, SELFPAY ==
[2025-03-10 09:41] LABS: MANUAL DIFF FLAG NO
[2025-03-10 09:45] LABS: Hematocrit 42.8 % (37.0-47.0); Hemoglobin 14.5 g/dl (12.0-16.0); Imm Gran Abs Auto 0.09 X10*3/uL (0.00-0.03); Imm Gran Pct Auto 1.0 % (0.0-0.4); Lymphocytes Absolute Auto 2.7 X10*3/uL (1.2-4.9); Mean Corpuscular HGB Conc 33.9 g/dl (31.0-35.0); Mean Corpuscular Hemoglobin 29.3 pg (27.0-33.0); Mean Corpuscular Volume 86.5 fL (80.0-98.0); NRBC Abs Auto 0.000 X10*3/uL (0.0-0.012); NRBC Pct Auto 0.0 /100WBC (0.0-0.2); Platelet Count 382 X10*3/uL (160-400); Red Blood Count 4.95 X10*6/uL (4.20-5.50); White Blood Count 9.4 X10*3/uL (4.8-10.8)
--- OUTSIDE RECORDS SUMMARY | 2025-03-10 09:55 | XMS_ITS | Patient Health Record ---
Author Organization [employer] [facility] Address [address] [place] [phone] Care Team Providers Care Rod Drawer Name Role Phone OUT OF STATE, Primary [...] 01/06/2025 Encounters Encounter Location Date Provider Diagnosis [facility] [address] [id number] 01/06/2025 Donna Morrow Dizziness R42 Assessments Encounter [...] RN and will drive her directly to [facility] ER, Plan Of Treatment No Information Insurance Providers Payer Name Payer Address Payer Phone Subscriber Number Group Number Insured Name Patient Relationship to Insured Coverage Start Date Coverage End Date [facility] [address] [place] [address] [id number] Anabela Shasha Self - patient is the insured Medical (General) History Medical History History ICD Code anxiety environmental allergies panic attacks thyroid disease tubal ligation c section
[2025-03-10 10:16] LABS: Alanine Aminotransferase 263 U/L (0-31); Albumin Level 4.3 g/dL (3.5-5.0); Alkaline Phosphatase 84 U/L (39-117); Anion Gap 11 (12-20); Aspartate Amino Transferase 165 U/L (5-31); Blood Urea Nitrogen 23 mg/dL (9-16); Calcium 9.0 mg/dL (8.4-10.2); Carbon Dioxide 31 mmol/L (22-29); Chloride 100 mmol/L (96-108); Estimated Glomerular Filt Rate > 60; Potassium 4.5 mmol/L (3.3-5.1); Sodium 137 mmol/L (135-145); Total Protein 7.0 g/dL (6.5-8.0)
[2025-03-10 12:12] LABS: Free T4 (Free Thyroxine) 0.83 ng/dL (0.71-1.85)
== END 2025-03-10 09:04 | disposition home or self-care (01) ==
LOC: HO.10HDL 09:03
PROVIDERS: Visit Provider Physician Assistant Medical
DX: R42 Dizziness and giddiness (principal); E03.9 Hypothyroidism, unspecified; Z13.21 Encounter for screening for nutritional disorder
CPT/HCPCS: 36415; 80053; 82306; 84439; 84443; 85025

== ENCOUNTER 2025-03-18 12:37 | Outpatient (REF) | payer OTHER, SELFPAY ==
--- OUTSIDE RECORDS SUMMARY | 2025-03-18 15:58 | XMS_ITS | Patient Health Record ---
Author Organization [employer] [facility] Address [address] [place] [phone] Care Team Providers Care Parts Department Supervisor Name Role Phone OUT OF STATE, Primary [...] 01/06/2025 Encounters Encounter Location Date Provider Diagnosis [facility] [address] [id number] 01/06/2025 Donna Morrow Dizziness R42 Assessments Encounter [...] RN and will drive her directly to [facility] ER, Plan Of Treatment No Information Insurance Providers Payer Name Payer Address Payer Phone Subscriber Number Group Number Insured Name Patient Relationship to Insured Coverage Start Date Coverage End Date [facility] [address] [place] [address] [id number] Anabela Shasha Self - patient is the insured Medical (General) History Medical History History ICD Code anxiety environmental allergies panic attacks thyroid disease tubal ligation c section
--- OUTSIDE RECORDS SUMMARY | 2025-03-18 15:58 | XMS_ITS | Clinical Summary ---
Author Organization [facility] Address [address] [place] [address] [place] [phone] Phone Care Team Providers Care Ore Bridge Operator Name Role Phone James Monique MD Primary [...] file Medical Devices Not on file Insurance [address] [place], [place] [address]O [facility] [address] [place] [place] [address] [place] [address] Care Teams Ore Bridge Operator Relationship Specialty Start Date End Date James Monique MD [address] [place] [address] [place] [address] PCP - General Internal Medicine 02/02/18 Additional Source Comments The information contained in this document represents components of the legal health record. It is not the complete legal health record.[facility]
== END 2025-03-18 12:38 | disposition home or self-care (01) ==
LOC: HO.MAMMO 12:37
PROVIDERS: PCP Physician Assistant Medical; Visit Provider Physician Assistant Medical
DX: Z12.31 Encounter for screening mammogram for malignant neoplasm of breast (principal)
CPT/HCPCS: 77063; 77067

== ENCOUNTER → 2025-03-18 12:45 | Outpatient (BNV) | payer OTHER, SELFPAY | PROVIDERS: PCP Physician Assistant Medical; Visit Provider Radiology Body Imaging | DX: Z12.31 Encounter for screening mammogram for malignant neoplasm of breast (principal) | CPT/HCPCS: 77063; 77067 ==

== ENCOUNTER 2025-03-27 09:13 | Outpatient (REF) | payer OTHER, SELFPAY ==
--- OUTSIDE RECORDS SUMMARY | 2025-03-27 10:02 | XMS_ITS | Clinical Summary ---
Author Organization [facility] Address [address] [place] [address] [place] [phone] Phone Care Team Providers Care Skoog Patching Machine Operator Name Role Phone James Monique MD [...] file Medical Devices Not on file Insurance [address] [place], [place] [address]O [facility] [address] [place] [address] [place] [address] Care Teams Skoog Patching Machine Operator Relationship Specialty Start Date End Date James Monique MD [address] [place] [address] [place] [address] PCP - General Internal Medicine 02/02/18 Additional Source Comments The information contained in this document represents components of the legal health record. It is not the complete legal health record.[facility]
--- OUTSIDE RECORDS SUMMARY | 2025-03-27 10:03 | XMS_ITS | Patient Health Record ---
Author Organization [facility] Address [address] [place] [phone] Care Team Providers Care Experiential Therapist Name Role Phone OUT OF STATE, Primary [...] 01/06/2025 Encounters Encounter Location Date Provider Diagnosis [facility] [address] [id number] 01/06/2025 Donna Morrow Dizziness R42 Assessments Encounter [...] RN and will drive her directly to [facility] ER, Plan Of Treatment No Information Insurance Providers Payer Name Payer Address Payer Phone Subscriber Number Group Number Insured Name Patient Relationship to Insured Coverage Start Date Coverage End Date [facility] [address] [place] [address] [id number] Anabela Shasha Self - patient is the insured Medical (General) History Medical History History ICD Code anxiety environmental allergies panic attacks thyroid disease tubal ligation c section
[2025-03-27 12:17] LABS: Alanine Aminotransferase 66 U/L (0-31); Albumin Level 4.5 g/dL (3.5-5.0); Alkaline Phosphatase 151 U/L (39-117); Anion Gap 11 (12-20); Aspartate Amino Transferase 29 U/L (5-31); Blood Urea Nitrogen 14 mg/dL (9-16); Calcium 9.2 mg/dL (8.4-10.2); Carbon Dioxide 27 mmol/L (22-29); Chloride 104 mmol/L (96-108); Cholesterol 218 mg/dL (<200); Estimated Glomerular Filt Rate > 60; HDL Cholesterol 76 mg/dL (>40); Potassium 4.5 mmol/L (3.3-5.1); Sodium 137 mmol/L (135-145); Total Protein 7.6 g/dL (6.5-8.0); Triglycerides 62 mg/dL (<150)
== END 2025-03-27 09:14 | disposition home or self-care (01) ==
LOC: HO.10HDL 09:13
PROVIDERS: Visit Provider Physician Assistant Medical
DX: R73.9 Hyperglycemia, unspecified (principal); Z13.220 Encounter for screening for lipoid disorders
CPT/HCPCS: 36415; 80053; 80061; 83036

== ENCOUNTER 2025-04-06 09:15 | Outpatient (AMB) | payer OTHER, SELFPAY ==
--- NOTE | 2025-04-06 07:51 | MHC.PC.OV ---
Vital Signs 04/06/25 07:52 Height 5 ft 7 in Weight 173 lb BMI 27.1 BP 124/80 Blood Pressure Location Lt brachial Position Sitting Pulse 89 Pulse Source Pulse Oximeter Temp 97.9 F Temp Source Temporal Artery Scan Pulse Oximetry (%) 98 Oxygen Delivery Method Room Air Intake Visit Reasons: 2 month f/u Differential Specialist Required: No Accompanied by: Self / Same As Patient Allergies No Known Allergies (No Known Allergies*) Allergy (Verified 04/06/25 07:52) Medication List - Last Reconciled 04/06/25 by UMESH Resendez albuterol sulfate 90 mcg/actuation 2 puffs inhalation Q4H PRN cholecalciferol (vitamin D3) 25 mcg PO DAILY estradiol 1 patch topical 2XW fluticasone propion-salmeterol 250-50 mcg/dose (Wixela Inhub) 1 ea inhalation BID fluticasone propionate 50 mcg/actuation 1 spray intranasal BID PRN levothyroxine (Levoxyl) 100 mcg PO DAILY loratadine-pseudoephedrine 10-240 mg ER (Claritin-D 24 Hour) 1 tab PO DAILY montelukast 10 mg PO DAILY progesterone micronized 100 mg PO BEDTIME Tobacco use date assessed: 04/06/25 Dental Screening Dental Screen Date: 04/06/25 Did you have a dental visit in the last 12 months?: Yes Did you have a dental problem in the last 6 months where you did not have access to dental care?: No HPI HPI Comments History of Present Illness Details 49 year old female with Moderate persistent asthma, perimenopausal and hypothyroidism presenting for review of recent lab results and to discuss multiple ongoing health concerns, including a psoriasis flare, elevated liver enzymes, and possible side effects of hormone replacement therapy. Patient's Levothyroxine was increased to 100mcg after her TSH was 6.83 a month ago. She will be due for recheck of TSH in 2 weeks. Recent lab work revealed a blood sugar of 119 mg/dL and a hemoglobin A1c of 6.0%, consistent with pre-diabetes. Her cholesterol is borderline elevated at 218 but not high enough to warrant medication at this time. Her liver function tests (AST/ALT) were also noted to be slightly elevated, though they have decreased from a previous higher value. The patient reports starting hormone replacement therapy (HRT) in January for perimenopausal symptoms and subsequently experienced an episode of severe presyncope, feeling as if she would pass out for approximately 20 hours, which prompted a visit to the ER. After follow up and an increased dosage of the patch, she developed a severe psoriasis outbreak, affecting her legs, arms, stomach, scalp, and the area under her breasts, along with associated hair loss. She has a history of a small spot of psoriasis in high school but has not experienced a flare of this magnitude before. She was seen by Dermatology for this. The patient also has a history of seasonal allergies, for which she was taking Claritin-D. She was diagnosed with a sinus infection via a CT scan after experiencing persistent nasal drainage, though she did not have typical symptoms like headache or facial pressure. She was treated with prednisone and antibiotics x 2, which she believes caused her initial markedly elevated liver enzymes. She has been trying to complete dental work including implants. She reports immediate bloating that is hard and distended after eating gluten. There is a family history of celiac disease in her aunt. Patient was informed and verbally consented to the use of an ambient scribe for clinic note documentation during this visit. [facility] Medical History (Updated 04/06/25 @ 11:20 by UMESH Resendez) Asthma Cervical high risk HPV (human papillomavirus) test positive Chronic sinusitis Dizziness Elevated LFTs Gluten intolerance Hyperglycemia Nicotine dependence Perimenopausal Pre-diabetes Psoriasis Surgical History History of bilateral tubal ligation History of History of colonoscopy (~07/03/23) Family History (Updated 04/06/25 @ 09:27 by Frances Webb MA) Father HTN (hypertension) Mother No problems noted. 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 1. Little interest or pleasure in doing things: not at all 2. Feeling down, depressed, or hopeless: not at all 3. Trouble falling or staying asleep, or sleeping too much: not at all 4. Feeling tired or having little energy: not at all 5. Poor appetite or overeating: not at all 6. Feeling bad about yourself - or that you are a failure or have let yourself or your family down: not at all 7. Trouble concentrating on things, such as reading the newspaper or watching television: not at all 8. Moving or speaking so slowly that other people could have noticed. Or the opposite - being so fidgety or restless that you have been moving around a lot more than usual: not at all 9. Thoughts that you would be better off or of hurting yourself in some way: not at all Total score: 0 Depression Screening Interpretation: Negative Depression Screening Done: Yes Source: Developed by Drs. Pramod Olivera, Luz Mujica, Gera Rodriguez and colleagues, with an educational kaitlyn from [employer]. Thrive Questionnaire Date Thrive assessed: 04/06/25 I am a: Patient Within the past 12 months, did the food you bought not last and you didn't have the money to get more?: Never true Within the past 12 months, did you worry whether your food would run out before you got money to buy more?: Never true Do you have trouble paying for medicines?: No Do you have trouble getting transportation to medical appointments?: No Do you have trouble paying your heating and electricity bill?: No Do you have trouble taking care of your child, family member or friend?: No Do you have trouble with day-to-day activities such as bathing, preparing meals, shopping, managing finances, etc.?: No Are you currently unemployed and looking for a job?: No Are you interested in more education?: No THRIVE Score: 0 AUDIT C Alcohol Use Questionnaire (AUDIT-C) 1. How often do you have a drink containing alcohol?: Never 3. How often do you have six or more drinks on one occasion?: Never Total Score: 0 WESTLEY-7 AMB Questionnaire WESTLEY-7 Date WESTLEY - 7 assessed: 04/06/25 Feeling nervous, anxious, or on edge: 0 = Not at all Not being able to stop or control worryin = Not at all Worrying too much about different things: 0 = Not at all Trouble relaxin = Not at all Being so restless that it is hard to sit still: 0 = Not at all Becoming easily annoyed or irritable: 0 = Not at all Feeling afraid as if something awful might happen: 0 = Not at all Total WESTLEY-7 score (0-4 normal; 5-9 mild; 10-14 moderate; 15-21 severe): 0 Source: Developed by Drs. Pramod Olivera, Lzu Mujica, Gera Rodriguez and colleagues, with an educational kaitlyn from [employer]. Review of Systems Narrative CONSTITUTIONAL Reports not feeling like herself and increased irritability. Denies suicidal ideation. HEAD/NECK Negative EAR/NOSE/MOUTH/THROAT Negative RESPIRATORY Negative CARDIOVASCULAR Negative GASTROINTESTINAL Reports immediate abdominal bloating and firmness after eating gluten MUSCULOSKELETAL Negative SKIN Reports a widespread psoriatic rash on her legs, arms, stomach, scalp and under her breasts. Reports hair loss. NEUROLOGICAL Negative PSYCHIATRIC Anxiety Physical exam (Primary Care) BMI result Body Mass Index 27.1 GENERAL Well developed, Well nourished, in no apparent distress HEENT Head-Normocephalic Neck- Supple, No lymphadenopathy, thyroid WNL RESPIRATORY Normal I:E, Clear to auscultation CARDIOVASCULAR Regular, rate and rhythm, No murmurs or rubs GASTROINTESTINAL Soft, nontender, normal bowel sounds, no masses NEUROLOGICAL Gait normal PSYCHIATRIC Oriented to person, place and time Mood and affect -anxious Appearance WNL Speech WNL Thought processes WNL Tobacco/Smoking Status: Tobacco use Status Tobacco use date assessed 04/06/25 04/06/25 07:53 Patient Tobacco Use Status Former Tobacco user 04/06/25 07:53 Tobacco use type Cigarette 04/06/25 07:53 e-Cigarette/Vaping Use Never Used 04/06/25 07:53 PHQ-9: PHQ-9 Score PHQ-9: Total score 0 04/06/25 07:53 Depression Screening Interpretation: Negative Thrive Assessment: Date of Thrive Assessment Date Thrive assessed 04/06/25 04/06/25 07:53 Results Reviewed Results Reviewed: - Labs: - Blood Sugar: 119 mg/dL. - Hemoglobin A1c: 6.0%. - Liver Function Tests: AST and ALT are slightly elevated, but have improved from previous, higher levels. - Cholesterol: Noted to be borderline, but not requiring medication. Coding Level of Care Code Established Pt Est Pt Level 5 (86017) Patient Type Established Diagnoses Hypothyroid E03.9 Perimenopausal N95.1 Pre-diabetes R73.03 Elevated LFTs R79.89 Psoriasis L40.9 Gluten intolerance K90.41 Chronic sinusitis J32.9 Time Spent (min) 40 Comment Time spent on chart review, Medication reconciliation, H&P, Patient education and orders Assessment & Plan Assessment & Plan (1) Hypothyroid: Code(s): E03.9 - Hypothyroidism, unspecified Category: Medical Plan: Patient is now on Levothyroxine 100mcg. Will recheck TSH. Patient to follow up in 3-4 weeks or sooner if symptoms persist or worsen. (2) Perimenopausal: Code(s): N95.1 - Menopausal and female climacteric states Category: Medical Plan: Discussed decreasing hormone patch back to the lower dosage. She has some at home. If no change may consider stopping the patches and exploring other treatments for Perimenopausal symptoms. (3) Pre-diabetes: Code(s): R73.03 - Prediabetes Category: Medical Plan: The patient's hemoglobin A1c of 6.0% places her in the pre-diabetic range. Dietary counseling was provided, including advising against weight gain and recommending portion control for carbohydrates, such as bread, pasta, and rice. The MyPlate method was recommended, with half of the plate consisting of vegetables, a quarter protein, and a quarter carbohydrates. Will follow up with labs in 6 months (4) Elevated LFTs: Code(s): R79.89 - Other specified abnormal findings of blood chemistry Category: Medical Plan: Given the persistently elevated liver enzymes, an ultrasound of the liver will be ordered to assess for fatty liver disease, which is the most common cause in this scenario. Blood work will be drawn today to include a hepatitis panel to screen for Hepatitis B and C, as well as a repeat of the liver function tests. Patient to follow up in 3-4 weeks or sooner if symptoms persist or worsen. (5) Psoriasis: Code(s): L40.9 - Psoriasis, unspecified Category: Medical Plan: The recent, severe psoriasis flare could be related to the patient's hormone replacement therapy. It is recommended that the patient revert to the lower dose HRT patch to see if her symptoms improve over the next one to two weeks, rather than stopping the medication abruptly. A vitamin D level will also be checked, as it can be associated with psoriasis. Patient to follow up with Dermatology. (6) Gluten intolerance: Code(s): K90.41 - Non-celiac gluten sensitivity Category: Medical Plan: Due to the patient's report of immediate bloating after gluten ingestion and her family history of celiac disease (aunt), a blood test to screen for celiac disease will be ordered. Patient to follow up in 3-4 weeks or sooner if symptoms persist or worsen. (7) Chronic sinusitis: Code(s): J32.9 - Chronic sinusitis, unspecified Category: Medical Plan: The patient is currently managing her sinus issues with onrs-rhr-wggzadi beclomethasone nasal spray and Claritin-D and has a follow-up CT scan is scheduled. The dizziness and presyncope episode may have been related to this sinus infection. No new interventions are planned for sinusitis at this visit. Plan I reviewed the patient's recent lab results with her, explaining that her hemoglobin A1c of 6.0 indicates pre-diabetes. We discussed dietary modifications, focusing on portion control of carbohydrates and increasing vegetable intake to help manage her blood sugar. I addressed her concerns about elevated liver enzymes and explained that while they need monitoring, the most likely cause is fatty liver disease, and we will investigate this with a liver ultrasound. I also explained the rationale for screening for hepatitis B and C as part of the workup. We discussed that her recent severe psoriasis flare could be a side effect of her hormone replacement therapy. I recommended she decrease her HRT patch to the lower dose she was previously on to assess for any improvement, rather than stopping it abruptly. Given her GI symptoms with gluten and family history, I recommended screening for celiac disease. We agreed to proceed with bloodwork today to investigate these issues, including a CBC, LFTs, hepatitis panel, celiac screen, TSH, and vitamin D level. I instructed her to schedule a follow-up appointment in 3-4 weeks to review the results. Orders: Orders Liver Panel Today R79.89 - Other specified abnormal findings of blood chemistry Vitamin D 25-OH Total Today E55.9 - Vitamin D deficiency, unspecified Celiac Disease Panel Today K90.41 - Non-celiac gluten sensitivity TSH reflex Free T4 Today E03.9 - Hypothyroidism, unspecified Hepatitis B,C Profile Today R79.89 - Other specified abnormal findings of blood chemistry Complete Blood Count Auto Diff Today J32.9 - Chronic sinusitis, unspecified US abdomen limited Today R79.89 - Other specified abnormal findings of blood chemistry Patient Instructions: - Please go to the lab today for blood work. We will be checking your liver function, thyroid (TSH), vitamin D level, and screening for celiac disease and hepatitis. - Change your hormone replacement patch back to the lower dose you were using before. Try this for one to two weeks and see how you feel. - Our office will place an order for a liver ultrasound, and the imaging center will call you to schedule the appointment. - Focus on your diet to help with your blood sugar. Try to make half of your plate vegetables, one quarter protein, and one quarter carbohydrates (like bread, rice, or pasta). - Continue taking your sinus medications as directed. - Please schedule a follow-up appointment with our office in the next 3 to 4 weeks to go over your test results and see how you are doing.
[2025-04-06 07:52] VITALS: BP 124/80; PULSE 89; TEMP 36.6; O2SAT 98; BMI 27.1
--- OUTSIDE RECORDS SUMMARY | 2025-04-06 10:17 | XMS_ITS | Patient Health Record ---
Author Organization [employer] Address [address] [place] [id number] Care Team Providers Care Marine Machinist Name Role Phone OUT OF STATE, Primary [...] Encounters Encounter Location Date Provider Diagnosis [facility] [address] [id number] 01/06/2025 Donna Morrow Dizziness R42 Assessments Encounter [...] RN and will drive [facility], Plan Of Treatment No Information Insurance Providers Payer Name Payer Address Payer Phone Subscriber Number Group Number Insured Name Patient Relationship to Insured Coverage Start Date Coverage End Date [facility] [address] [place] [address] [id number] Anabela Shasha Self - patient is the insured Medical (General) History Medical History History ICD Code anxiety environmental allergies panic attacks thyroid disease tubal ligation c section
--- OUTSIDE RECORDS SUMMARY | 2025-04-06 10:17 | XMS_ITS | Clinical Summary ---
Author Organization [facility] Address [address] [place] [address] [place] [phone] Phone Care Team Providers Care Pass Worker Name Role Phone James Monique MD Primary [...] file Medical Devices Not on file Insurance [address] [place] [address] [address] [place] [address] [place] [address] Care Teams Pass Worker Relationship Specialty Start Date End Date James Monique MD [address] [place] [address] [place] [address] PCP - General Internal Medicine 02/02/18 Additional Source Comments The information contained in this document represents components of the legal health record. It is not the complete legal health record.[facility]
== END 2025-04-06 12:50 | disposition home or self-care (01) ==
LOC: HO.HMCHD 09:15
PROVIDERS: PCP Physician Assistant Medical; Visit Provider Physician Assistant Medical
DX: E03.9 Hypothyroidism, unspecified (principal); N95.1 Menopausal and female climacteric states; R73.03 Prediabetes; R79.89 Other specified abnormal findings of blood chemistry; L40.9 Psoriasis, unspecified; K90.41 Non-celiac gluten sensitivity; J32.9 Chronic sinusitis, unspecified

== ENCOUNTER 2025-04-06 10:08 | Outpatient (REF) | payer OTHER, SELFPAY ==
[2025-04-06 13:13] LABS: MANUAL DIFF FLAG NO
[2025-04-06 13:36] LABS: Hematocrit 42.3 % (37.0-47.0); Hemoglobin 14.1 g/dl (12.0-16.0); Imm Gran Abs Auto 0.02 X10*3/uL (0.00-0.03); Imm Gran Pct Auto 0.4 % (0.0-0.4); Lymphocytes Absolute Auto 1.9 X10*3/uL (1.2-4.9); Mean Corpuscular HGB Conc 33.3 g/dl (31.0-35.0); Mean Corpuscular Hemoglobin 29.0 pg (27.0-33.0); Mean Corpuscular Volume 87.0 fL (80.0-98.0); NRBC Abs Auto 0.000 X10*3/uL (0.0-0.012); NRBC Pct Auto 0.0 /100WBC (0.0-0.2); Platelet Count 402 X10*3/uL (160-400); Red Blood Count 4.86 X10*6/uL (4.20-5.50); White Blood Count 5.3 X10*3/uL (4.8-10.8)
[2025-04-06 14:08] LABS: Alanine Aminotransferase 28 U/L (0-31); Albumin Level 4.6 g/dL (3.5-5.0); Alkaline Phosphatase 101 U/L (39-117); Aspartate Amino Transferase 25 U/L (5-31); Total Protein 7.6 g/dL (6.5-8.0)
[2025-04-07 06:27] LABS: HBS Num1 0.30 mIU/mL (0-7.99); HBc Num1 0.32 S/CO (0.00-0.79); HBsAGNum1 0.39 S/CO (0.00-0.99); Hepatitis B Surface Antigen Negative (Negative); ~HepC Num1 0.15 S/CO (0.00-0.79); ~Hepatitis B Surface Antibody NONREACTIVE (Nonreactive); ~Hepatitis C Antibody Nonreactive (Nonreactive)
[2025-04-08 00:14] LABS: Immunoglobulin A 242 mg/dL (47-310)
== END 2025-04-06 10:09 | disposition home or self-care (01) ==
LOC: HO.10HDL 10:08
PROVIDERS: Visit Provider Physician Assistant Medical
DX: J45.40 Moderate persistent asthma, uncomplicated (principal); E03.9 Hypothyroidism, unspecified; R74.8 Abnormal levels of other serum enzymes; Z79.899 Other long term (current) drug therapy; R73.03 Prediabetes; N95.1 Menopausal and female climacteric states; L40.9 Psoriasis, unspecified; K90.41 Non-celiac gluten sensitivity; J32.9 Chronic sinusitis, unspecified; R79.89 Other specified abnormal findings of blood chemistry; E55.9 Vitamin D deficiency, unspecified
CPT/HCPCS: 36415; 80076; 82306; 82784; 84443; 85025; 86364; 86704; 86706; 86803; 87340; 96127

== ENCOUNTER 2025-04-08 11:21 | Outpatient (AMB) | payer OTHER, SELFPAY ==
--- NOTE | 2025-04-08 11:27 | A.OFFVIS_ITS ---
Vital Signs 04/08/25 11:30 Height 5 ft 7 in Weight 170 lb BMI 26.6 BP 122/80 Intake Visit Reasons: Annual/ breast follow up/DO NOT RS Back Joiner Required: No Information Interpreted: non-clinical & clinical Corporate Communications Specialist: Corporate Communications Specialist Present (Cherri Hernandez SABRINA) Accompanied by: Self / Same As Patient Allergies No Known Allergies (No Known Allergies*) Allergy (Verified 04/08/25 11:31) Post menopausal: Yes HPI Comments Details: Presenting for annual exam. No complaints. Last Pap/HPV was negative in 10/23 Last Mammogram was BI-RADS 1 in 03/28 Last Colonoscopy was in 06/27, the recommendation was to repeat in 10 years [facility] Medical History Chronic sinusitis Psoriasis Gluten intolerance Elevated LFTs Pre-diabetes Hyperglycemia Nicotine dependence Perimenopausal Dizziness Cervical high risk HPV (human papillomavirus) test positive Asthma Surgical History History of colonoscopy (~07/03/23) History of bilateral tubal ligation History of Family History Father HTN (hypertension) Mother No problems noted. 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 Sexual orientation: Straight/Heterosexual Gender identity: Female Cognitive needs: No Hearing needs: No Vision needs: Yes (rx glasses) Female Reproductive History Menstrual Age of Menarche: 10 Date of last pap smear: 10/25/21 Date of Mammogram: 03/18/25 Review of Systems Const All systems reviewed & are unremarkable except as noted in HPI and below Card Reports as per HPI Resp Reports as per HPI GI Reports as per HPI and Reports no additional complaints Reports as per HPI Physical Exam Vital Signs: Last Vital Signs BP 122/80 04/08/25 11:30 BMI result Body Mass Index 26.6 Const General: cooperative, healthy appearing and comfortable Chest Chest palpation & inspection: normal inspection of the chest and normal palpation of entire chest wall Breast/axilla inspection: normal inspection of the breasts and normal inspection of the axillae Breast/axilla palpation: normal palpation of the breasts, normal palpation of the axillae and no axillary lymphadenopathy Resp Effort & Inspection: normal respiratory effort Auscultation: clear to auscultation bilaterally Percussion: percussion normal Cardio Palpation: normal PMI Rate: regular rate Rhythm: regular rhythm Heart sounds: no murmurs and no rubs Peripheral pulses: Peripheral pulses 2+ throughout GI Inspection: Yes normal to inspection Palpation (GI): Soft to palpation, nontender, no guarding, not rigid and No hepatosplenomegaly present Percussion: Yes normal to percussion Auscultation: normal bowel sounds Rectal Exam - Female: deferred General: Yes bladder normal to palpation External Female Exam: No lesion Speculum Exam - Vagina: normal appearance of the vagina, normal palpation, normal vaginal discharge and not erythematous Speculum Exam - Cervix: normal appearance of the cervix and normal palpation Bimanual exam- vagina & uterus: normal bimanual exam, normal palpation, uterine size normal, bladder normal to palpation, consistency normal and normal palpation Bimanual Exam- Adnexa, other: normal adnexae, no masses and no tenderness Assessment & Plan Assessment & Plan (1) Well woman exam: Code(s): Z01.419 - Encounter for gynecological examination (general) (routine) without abnormal findings Category: Medical Plan: Co testing not indicated this year. Counseled the patient about the recommended dietary allowance of 1200 mg of Calcium & 600 IU of vitamin D. Instructions given the patient to schedule next year screen Mammogram 03/29. The patient was instructed to perform monthly self-breast exams and schedule annual exam in a year. All questions answered and the patient verbalized understanding. Coding Level of Care Code Est Pt Prev Care 40-64y(54204) Diagnoses Well woman exam Z01.419
[2025-04-08 11:30] VITALS: BP 122/80; BMI 26.6
--- OUTSIDE RECORDS SUMMARY | 2025-04-08 13:52 | XMS_ITS | Clinical Summary ---
Author Organization [facility] Address [address] [place] [address] [place] [phone] Phone Care Team Providers Care Railway Shunter Name Role Phone James Monique MD Primary [...] file Medical Devices Not on file Insurance [address] [place], [place] [id number] [facility] [address] [place] [address] [place] [address] Care Teams Railway Shunter Relationship Specialty Start Date End Date James Monique MD [address] [place] [address] [place] [address] PCP - General Internal Medicine 02/02/18 Additional Source Comments The information contained in this document represents components of the legal health record. It is not the complete legal health record.[facility]
--- OUTSIDE RECORDS SUMMARY | 2025-04-08 13:53 | XMS_ITS | Patient Health Record ---
Author Organization [email or web address] Address [address] [place] [phone] Care Team Providers Care Billboard Poster Name Role Phone OUT OF STATE, Primary [...] Encounter Location Date Provider Diagnosis [facility] [address] [phone] 01/06/2025 Donna Morrow Dizziness R42 Assessments Encounter [...] RN and will drive her directly to [facility], Plan Of Treatment No Information Insurance Providers Payer Name Payer Address Payer Phone Subscriber Number Group Number Insured Name Patient Relationship to Insured Coverage Start Date Coverage End Date [facility] [address] [place] [address] [id number] Anabela Shasha Self - patient is the insured Medical (General) History Medical History History ICD Code anxiety environmental allergies panic attacks thyroid disease tubal ligation c section
== END 2025-04-08 12:07 | disposition home or self-care (01) ==
LOC: HO.HWS 11:22
PROVIDERS: PCP Internal Medicine; Visit Provider Obstetrics & Gynecology
DX: Z01.419 Encounter for gynecological examination (general) (routine) without abnormal findings (principal)
CPT/HCPCS: 99396; 99459

== ENCOUNTER 2025-05-04 09:06 | Outpatient (AMB) | payer OTHER, SELFPAY ==
[2025-05-04 09:15] VITALS: BP 124/80; PULSE 87; TEMP 36.4; O2SAT 98; BMI 26.9
--- NOTE | 2025-05-04 09:15 | A.OFFPC_ITS ---
Vital Signs 05/04/25 09:15 Height 5 ft 7 in Weight 172 lb BMI 26.9 BP 124/80 Blood Pressure Location Lt brachial Position Sitting Pulse 87 Pulse Source Pulse Oximeter Temp 97.6 F Temp Source Temporal Artery Scan Pulse Oximetry (%) 98 Oxygen Delivery Method Room Air Intake Visit Reasons: 4 week f/u Interface Engineer Required: No Accompanied by: Self / Same As Patient Allergies No Known Allergies (No Known Allergies*) Allergy (Verified 05/04/25 09:16) Medication List - Last Reconciled 05/04/25 by UMESH Resendze albuterol sulfate 90 mcg/actuation 2 puffs inhalation Q4H PRN cholecalciferol (vitamin D3) 25 mcg PO DAILY fluticasone propion-salmeterol 250-50 mcg/dose (Wixela Inhub) 1 ea inhalation BID fluticasone propionate 50 mcg/actuation 1 spray intranasal BID PRN levothyroxine (Levoxyl) 100 mcg PO DAILY loratadine-pseudoephedrine 10-240 mg ER (Claritin-D 24 Hour) 1 tab PO DAILY montelukast 10 mg PO DAILY Tobacco use date assessed: 05/04/25 Dental Screening Dental Screen Date: 05/04/25 Did you have a dental visit in the last 12 months?: Yes Did you have a dental problem in the last 6 months where you did not have access to dental care?: No HPI HPI Comments History of Present Illness Details History of Present Illness The patient is a 49 year old female with Moderate persistent asthma, perimenopausal symptoms and hypothyroidism presenting for a follow-up on lab work and management of multiple clinical issues. Recent follow-up lab work was normal, including normalization of previously elevated liver functions, and stable thyroid and vitamin D levels. The prior elevation in liver enzymes prompted a negative screening for hepatitis. The patient has a history of hypothyroidism and recently had a medication adjustment, necessitating a repeat TSH check to ensure therapeutic levels. The patient has an upcoming liver ultrasound scheduled. The patient reports a new issue since the 12 years ago, describing a hard bulge below the left ribcage that protrudes with coughing or sneezing and then retracts. It is painful. The patient recently developed a urinary tract infection and sought treatment via telehealth, receiving prescriptions for nitrofurantoin and phenazopyridine. Symptoms have improved but have not fully resolved after being on the antibiotic since Sunday. For psoriasis covering about 20% of the body, the patient saw a mine safety manager and received a Trumfaya injection, with a TB test pending. The patient also recently discontinued hormone replacement therapy (patch) and noted no significant difference in well-being. The patient has a history of a prior severe influenza illness that required three emergency room visits. She would like to get a Flu vaccine Medical History: - Hypothyroidism - History of elevated liver function kaylyn ts, now resolved - History of Human Papillomavirus (HPV) - Dermatologic condition covering 20% of the body - History of severe influenza requiring multiple emergency department visits Health Maintenance The patient has a history of severe influenza, and the risks and benefits of the influenza vaccine were discussed. The patient agreed to receive the vaccination, and it will be administered today if available. The patient will follow up with dermatology for management of a skin condition, which includes getting a TB test. A follow-up visit is recommended in about four months to review all outstanding issues. Patient was informed and verbally consented to the use of an ambient scribe for clinic note documentation during this visit. [facility] Medical History (Updated 05/04/25 @ 10:52 by UMESH Resendez) Abdominal mass Asthma Cervical high risk HPV (human papillomavirus) test positive Chronic sinusitis Dizziness Dysuria Elevated LFTs Gluten intolerance Hyperglycemia Nicotine dependence Perimenopausal Pre-diabetes Psoriasis Surgical History History of bilateral tubal ligation History of History of colonoscopy (~07/03/23) Family History Father HTN (hypertension) Mother No problems noted. 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 1. Little interest or pleasure in doing things: not at all 2. Feeling down, depressed, or hopeless: not at all 3. Trouble falling or staying asleep, or sleeping too much: not at all 4. Feeling tired or having little energy: not at all 5. Poor appetite or overeating: not at all 6. Feeling bad about yourself - or that you are a failure or have let yourself or your family down: not at all 7. Trouble concentrating on things, such as reading the newspaper or watching television: not at all 8. Moving or speaking so slowly that other people could have noticed. Or the opposite - being so fidgety or restless that you have been moving around a lot more than usual: not at all 9. Thoughts that you would be better off or of hurting yourself in some way: not at all Total score: 0 Depression Screening Interpretation: Negative Depression Screening Done: Yes Source: Developed by Drs. Pramod Olivera, Luz Mujica, Gera Rodriguez and colleagues, with an educational kaitlyn from [employer]. Thrive Questionnaire Date Thrive assessed: 05/04/25 I am a: Patient Within the past 12 months, did the food you bought not last and you didn't have the money to get more?: Never true Within the past 12 months, did you worry whether your food would run out before you got money to buy more?: Never true Do you have trouble paying for medicines?: No Do you have trouble getting transportation to medical appointments?: No Do you have trouble paying your heating and electricity bill?: No Do you have trouble taking care of your child, family member or friend?: No Do you have trouble with day-to-day activities such as bathing, preparing meals, shopping, managing finances, etc.?: No Are you currently unemployed and looking for a job?: No Are you interested in more education?: No THRIVE Score: 0 AUDIT C Alcohol Use Questionnaire (AUDIT-C) 1. How often do you have a drink containing alcohol?: Monthly or less 2. How many drinks containing alcohol do you have on a typical day when you are drinking?: 1 or 2 3. How often do you have six or more drinks on one occasion?: Less than monthly Total Score: 2 WESTLEY-7 AMB Questionnaire WESTLEY-7 Date WESTLEY - 7 assessed: 05/04/25 Feeling nervous, anxious, or on edge: 0 = Not at all Not being able to stop or control worryin = Not at all Worrying too much about different things: 0 = Not at all Trouble relaxin = Not at all Being so restless that it is hard to sit still: 0 = Not at all Becoming easily annoyed or irritable: 0 = Not at all Feeling afraid as if something awful might happen: 0 = Not at all Total WESTLEY-7 score (0-4 normal; 5-9 mild; 10-14 moderate; 15-21 severe): 0 Source: Developed by Drs. Pramod Olivera, Luz Mujica, Gera Rodriguez and colleagues, with an educational kaitlyn from [employer]. Review of Systems Narrative Review of Systems - Abdominal: Reports a hard bulge below the ribcage that protrudes with coughing or sneezing. - Genitourinary: Reports improving, but persistent, symptoms of a urinary tract infection. - Dermatologic: Reports a skin condition covering approximately 20% of the body. - Constitutional: Denies dizziness. Physical exam (Primary Care) Vital Signs: Last Vital Signs Temp 97.6 F 05/04/25 09:15 Pulse 87 05/04/25 09:15 BP 124/80 05/04/25 09:15 Pulse Ox 98 05/04/25 09:15 Oxygen Delivery Method Room Air 05/04/25 09:15 BMI result Body Mass Index 26.9 GENERAL Well developed, Well nourished, in no apparent distress HEENT Head-Normocephalic Neck- Supple, No lymphadenopathy, thyroid WNL RESPIRATORY Normal I:E, Clear to auscultation CARDIOVASCULAR Regular, rate and rhythm, No murmurs or rubs GASTROINTESTINAL Soft, nontender, normal bowel sounds, no masses noted NEUROLOGICAL Gait normal PSYCHIATRIC Oriented to person, place and time Mood and affect WNL Appearance WNL Speech WNL Thought processes WNL Tobacco/Smoking Status: Tobacco use Status Tobacco use date assessed 05/04/25 05/04/25 09:18 Patient Tobacco Use Status Former Tobacco user 05/04/25 09:18 Tobacco use type Cigarette 05/04/25 09:18 e-Cigarette/Vaping Use Never Used 05/04/25 09:18 PHQ-9: PHQ-9 Score PHQ-9: Total score 0 05/04/25 10:14 Depression Screening Interpretation: Negative Thrive Assessment: Date of Thrive Assessment Date Thrive assessed 05/04/25 05/04/25 09:18 Office Procedures Flu Questionnaire Does the patient have a severe egg allergy?: No Does the patient have severe life threatening allergies?: No Does the patient have a fever or illness today?: No Has the patient ever had Guillain-[place] Syndrome?: No Has the patient ever had any past reaction to a flu shot?: No Immunizations Fluarix [id number] (PF) 45 mcg (15 mcg x 3)/0.5 mL IM syringe Performing Provider: UMESH Resendez Performing Location: [facility] Administered by: Kimberly Avila CMA on 05/04/25 10:19 Dose Route Admin Location Dispensed Lot Number Expiration Date [facility] Hot Plate [employer] Press Offbearer 0.5 mL IM Left Deltoid 0.5 mL [id number] 12/01/25 [id number] [employer] VIS Given Date VIS Provided VIS Publication Date 05/04/25 Single Vaccine 24 Eligibility Eligibility Date Funding Source Not [facility] Eligible 05/04/25 Private Results Reviewed Results Reviewed: Results - Labs: Recent lab work showed normal liver function tests, normal TSH, and normal vitamin D level. - Tests and Diagnostics: Prior screening for hepatitis was negative. Coding Level of Care Code Established Pt Complex visit Add On G2211 Patient Type Established Diagnoses Hypothyroid E03.9 Elevated LFTs R79.89 Abdominal mass R19.00 Dysuria R30.0 Time Spent (min) 30 Comment Time spent on lab review, H&P, Patient education orders. Assessment & Plan Assessment & Plan (1) Hypothyroid: Comment: TSH was 0.82 Code(s): E03.9 - Hypothyroidism, unspecified Category: Medical (2) Elevated LFTs: Code(s): R79.89 - Other specified abnormal findings of blood chemistry Category: Medical Plan: Will have US on 05/14. All labs were essentially normaL. (3) Abdominal mass: Code(s): R19.00 - Intra-abdominal and pelvic swelling, mass and lump, unspecified site Category: Medical Plan: Will add Complete abdominal US (4) Dysuria: Code(s): R30.0 - Dysuria Category: Medical Plan: Will recheck UA after completing Nitrofurantoin. Plan Plan Patient was informed and verbally consented to the use of an ambient scribe for clinic note documentation during this visit. 1. Urinary Tract Infection The patient is currently on day 3 of nitrofurantoin for a UTI diagnosed via telehealth, with improving but not fully resolved symptoms. The patient will continue the full course of nitrofurantoin and was counseled on the importance of hydration. A urinalysis will be ordered to be collected at the same time as upcoming bloodwork to confirm resolution of the infection. 2. Hypothyroidism Although recent TSH level was normal, a repeat check is warranted due to a recent medication adjustment to ensure the level remains therapeutic and not suppressive. A lab order for TSH will be placed, and the patient plans to have the blood drawn on the day of the scheduled ultrasound, for which the patient will be fasting. 3. Suspected Ventral Hernia The patient reports a symptomatic bulge inferior to the ribcage that occurs with increased intra-abdominal pressure, which is suspicious for a ventral hernia, possibly related to a prior . As the currently scheduled right upper quadrant ultrasound for the liver will not visualize this area, an add-on order for an ultrasound of the abdominal wall at the location of the bulge will be placed for further evaluation. Discussion Notes I reviewed the patient's recent lab results, which were reassuringly normal, including resolved liver function abnormalities and a stable TSH. I explained the importance of rechecking the thyroid level after a medication adjustment to avoid iatrogenic hyperthyroidism. We discussed the new report of an abdominal bulge, and I advised that I would add an order for an ultrasound to investigate a possible hernia. I advised the patient to complete the full course of antibiotics for the UTI and informed the patient I would order a follow-up urinalysis to ensure the infection is cleared. We also discussed the benefits of the influenza vaccine, particularly given the patient's history of a severe flu episode, and I offered to provide it today. I recommended a follow-up appointment in approximately four months. Patient Instructions - Make sure to finish all of your antibiotic (nitrofurantoin) for your urinary tract infection. - Drink plenty of fluids to help flush your system. - You will need to get bloodwork to recheck your thyroid level. - I am ordering a urine test to be done at the same time as your bloodwork to make sure your infection is gone. - You plan to get your bloodwork and urine test on the same day as your scheduled ultrasound, which is a good plan. - I have added an order for the ultrasound to also look at the bulge under your ribs. - We will check if we can give you a flu shot today before you leave. - Please make a follow-up appointment for about four months from now. - If your urinary symptoms do not go away completely after finishing the antibi otic, please let us know. Orders: Orders TSH reflex Free T4 Today E03.9 - Hypothyroidism, unspecified UA CC w/rflx Micro + Cult Today R30.0 - Dysuria US abdomen complete Today R19.00 - Intra-abdominal and pelvic swelling, mass and lump, unspecified site Influenza [id number] Immunization Today Z23 - Encounter for immunization
--- OUTSIDE RECORDS SUMMARY | 2025-05-04 10:36 | XMS_ITS | Clinical Summary ---
Author Organization [facility] Address [address] [place] [address] [place] [phone] Phone Care Team Providers Care Cable Tv Installer Name Role Phone James Monique MD Primary [...] file Medical Devices Not on file Insurance [address] [place], [place] [id number] [address] [place] [place] [address] [place] [address] Care Teams Cable Tv Installer Relationship Specialty Start Date End Date James Monique MD [address] [place] [address] [place] [address] PCP - General Internal Medicine 02/02/18 Additional Source Comments The information contained in this document represents components of the legal health record. It is not the complete legal health record.[facility]
== END 2025-05-04 10:13 | disposition home or self-care (01) ==
LOC: HO.HMCHD 09:07
PROVIDERS: PCP Physician Assistant Medical; Visit Provider Physician Assistant Medical
DX: E03.9 Hypothyroidism, unspecified (principal); R79.89 Other specified abnormal findings of blood chemistry; R19.00 Intra-abdominal and pelvic swelling, mass and lump, unspecified site; R30.0 Dysuria; Z23 Encounter for immunization

== ENCOUNTER → 2025-05-04 09:06 | Outpatient (BNVA) | payer OTHER, SELFPAY | PROVIDERS: PCP Physician Assistant Medical; Visit Provider Physician Assistant Medical | DX: Z13.31 Encounter for screening for depression (principal); Z13.39 Encounter for screening examination for other mental health and behavioral disorders; Z23 Encounter for immunization | CPT/HCPCS: 90471; 90656; 96127 ==

== ENCOUNTER 2025-05-08 09:03 | Outpatient (REF) | payer OTHER, SELFPAY ==
[2025-05-11 08:13] LABS: TS Negative Control Passed; TS Panel A 0; TS Panel B 0; TS Positive Control Passed; TSpotTB Negative (Negative)
== END 2025-05-08 09:04 | disposition home or self-care (01) ==
LOC: HO.10HDL 09:03
PROVIDERS: Visit Provider Dermatology
DX: Z11.1 Encounter for screening for respiratory tuberculosis (principal); L40.0 Psoriasis vulgaris
CPT/HCPCS: 36415; 86481

== ENCOUNTER 2025-05-14 09:24 | Outpatient (REF) | payer OTHER, SELFPAY ==
--- NOTE | ~2025-05-14 | US_ITS ---
CLINICAL HISTORY: R19.00 - Intra-abdominal and pelvic swelling, mass and lump, unspecified... --- Additional Notes or Special Instructions: Mass in LUQ with valsalva. Patient has appointment on 05 14 for RUQ US due US abdomen limited Comparison: None provided Findings: The visualized pancreas is normal. The aorta and inferior vena cava are normal caliber. The appearance of the liver suggests fatty infiltration. There is no intrahepatic bile duct dilatation. The common duct is 7.0 mm in diameter. The gallbladder is normal. There is no sonographic Armstrong sign. The main portal vein is antegrade. The right kidney is 11.1 cm in length. No ascites. IMPRESSION: 1. Hepatic steatosis. This document has been electronically signed by: Mekhi Cox MD on 05/15/2025 10:53:54
== END 2025-05-14 09:25 | disposition home or self-care (01) ==
LOC: HO.US 09:24
PROVIDERS: PCP Physician Assistant Medical; Visit Provider Physician Assistant Medical
DX: R19.00 Intra-abdominal and pelvic swelling, mass and lump, unspecified site (principal)
CPT/HCPCS: 76705

== ENCOUNTER → 2025-05-14 09:32 | Outpatient (BNV) | payer OTHER, SELFPAY | PROVIDERS: PCP Physician Assistant Medical; Visit Provider Specialist | DX: K76.0 Fatty (change of) liver, not elsewhere classified (principal) | CPT/HCPCS: 76705 ==